=== PATIENT | female | born 1975 | race Caucasian/White ===

== ENCOUNTER 2020-11-10 05:54 | Observation (INO) | payer BC, OTHER ==
[2020-11-10] MEDS ORDERED: Sodium Chloride 0.9% 2.5 ML Syringe FLUSH PRN ×2 (06:32→10:37)
[2020-11-10] MEDS ORDERED: Sodium Chloride 0.9% 10 ML Syringe FLUSH PRN ×2 (06:32→10:37)
[2020-11-10] MEDS ORDERED: Morphine 4 MG/ML Syringe IVPUSH ONE (06:33)
[2020-11-10] MEDS ORDERED: Ondansetron 4 MG/2 ML SDV IVPUSH ONE ×2 (06:33→08:20)
--- NOTE | 2020-11-10 06:39 | EDM.PDOC ---
<Frank Valentin - Last Filed: 11/10/20 06:49> ED HPI GENERAL MEDICAL PROBLEM - General Chief Complaint: Abdominal Pain Stated Complaint: STOMACH PAIN Time Seen by Provider: 11/10/20 06:30 - History of Present Illness INITIAL COMMENTS - FREE TEXT/NARRATIVE: 45-year-old female with a history of polycystic ovarian syndrome has not had menses in quite some time no prior history of similar episodes who is presenting with severe right lower quadrant abdominal pain radiating across to the left lower quadrant waxing and waning over the last 3 days symptoms did start after very large bowel movement and after starting Metformin but no diarrhea pain now radiating up and associated with nausea but no vomiting. No fevers no dysuria or hematuria no vaginal bleeding or discharge. No prior abdominal surgeries. Patient was taking NSAIDs over the last 2 nights with symptom improvement but they have not helped thus far today. 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: Polycystic Ovaries Musculoskeletal History: Reports: None Neurological History: Reports: None Psychiatric History: Reports: None Endocrine/Metabolic History: Reports: Hypothyroidism Dermatologic History: Reports: None - Infectious Disease History Infectious Disease History: Reports: None - Past Surgical History Female Surgical History: Reports: None Social & Family History - Tobacco Use Tobacco Use Status *Q: Never Tobacco User - Caffeine Use Caffeine Use: Reports: Coffee - Recreational Drug Use Recreational Drug Use: No ED ROS GENERAL - Review of Systems Review Of Systems: See Below Free Text/Narrative/Comment: General: No fever. Skin: No rash. Eyes: No vision problems. ENT: No sore throat. Neck: No neck stiffness. Respiratory: No shortness of breath. Cardiac: No chest pain. Gastrointestinal: Per HPI. Urinary: No dysuria. Musculoskeletal: No myalgias/arthralgias. Neurologic: No headache. ED EXAM, GENERAL - Physical Exam Exam: See Below Free Text/Narrative:: General Appearance: No acute distress, appears comfortable Skin: No rash HEENT: Normocephalic/atraumatic, sclera anicteric, mucous membranes moist Neck: Normal range of motion Chest and Lungs: Bilateral breath sounds, clear to auscultation Cardiovascular: Regular rate and rhythm, no murmur Abdomen: Soft, bilateral lower quadrant tenderness much more significant in the right lower quadrant no guarding or rebound Back: Normal Musculoskeletal: No edema or tenderness Neurologic: Awake, alert, no obvious deficits, moving all extremities Psychiatric: Appropriate, cooperative Departure - Departure Disposition: Admitted As Inpatient 65 Clinical Impression: Appendicitis Qualifiers: Appendicitis type: acute appendicitis Acute appendicitis type: with localized peritonitis Appendicitis gangrene presence: unspecified whether gangrene present Appendicitis perforation presence: unspecified whether perforation present Appendicitis abscess presence: with abscess Qualified Code(s): K35.33 - Acute appendicitis with perforation and localized peritonitis, with abscess - Discharge Information Sepsis Event Note (ED) - Evaluation Sepsis Screening Result: No Definite Risk - Assessment/Plan Assessment:: 45-year-old female presenting with 3 days of cough and lower abdominal pain. The waxing and waning nature makes ovarian torsion very unlikely. Ovarian cyst pain is possible. However, patient is significantly tender awfully high in the abdomen for this. Appendicitis needs to be considered nothing suggest colitis and diverticulitis is felt less likely. Very minimal symptoms in the upper abdomen I think biliary pathology is unlikely. No vaginal discharge patient does not have risk factors for PID. Given this TOA felt unlikely as well. Morphine and Zofran for symptoms CBC CMP U. Urinalysis and CT scan of been ordered to further assess. These results are pending at this time and patient was signed out to Dr. Sandoval pending these results and final disposition. <Alex Sandoval - Last Filed: 11/10/20 18:53> ED HPI GENERAL MEDICAL PROBLEM - History of Present Illness INITIAL COMMENTS - FREE TEXT/NARRATIVE: 8:15 AM: Signout received at 7 AM. Patient complaining of right lower quadrant abdominal pain increases with walking to the bathroom to urinate. Patient CT scan is consistent with an enlarged appendix with perforation at the tip with appendix with a surrounding abscess. Case discussed with Dr. Rodrigez who will assist with managing patient's appendicitis. Patient be given Zosyn 3.75 mg IV, LR at 125 mL's per hour, Dilaudid 0.5 mg IV, Zofran 4 mg IV. Patient admitted to service Dr. Rodrigez for IV antibiotics and surgical evaluation. Course - Vital Signs Last Recorded V/S: Last Vital Signs Temp 98.1 F 11/10/20 17:30 Pulse 55 L 11/10/20 17:30 Resp 14 11/10/20 17:30 BP 109/64 11/10/20 17:30 Pulse Ox 98 11/10/20 17:30 - Orders/Labs/Meds Orders: Active Orders 24 hr Category Date Time Status Lactated Ringers [Ringers, Lactated] 1,000 ml Med 11/10/20 08:15 Active IV ASDIRECTED Sodium Chloride 0.9% [Saline Flush] Med 11/10/20 06:32 Active 10 ml FLUSH ASDIRECTED PRN Sodium Chloride 0.9% [Saline Flush] Med 11/10/20 06:32 Active 2.5 ml FLUSH ASDIRECTED PRN Saline Lock Insert [OM.PC] Stat Oth 11/10/20 06:32 Ordered Medication Orders Diphenhydramine HCl (Diphenhydramine 50 Mg/Ml Sdv) 50 mg IVPUSH Q6H PRN PRN Reason: Itching Hydromorphone HCl (Hydromorphone 2 Mg/Ml Syringe) 0.5 mg IVPUSH Q1H PRN PRN Reason: Pain (severe 7-10) Last Admin: 11/10/20 13:26 Dose: 0.5 mg Documented by: MADY Lactated Ringer's (Ringers, Lactated) 1,000 mls @ 125 mls/hr IV ASDIRECTED [facility] Last Admin: 11/10/20 13:42 Dose: 125 mls/hr Documented by: Infusion: 11/10/20 13:42 Dose: 125 mls/hr Documented by: Admin: 11/10/20 08:29 Dose: 125 mls/hr Documented by: PATRICIA Piperacillin Sod/Tazobactam (Sod 3.375 gm/ Sodium Chloride) 100 mls @ 200 mls/h r IV Q6H [facility] Last Admin: 11/10/20 13:42 Dose: 200 mls/hr Documented by: DEE Ketorolac Tromethamine (Ketorolac 30 Mg/Ml Sdv) 30 mg IVPUSH Q6H PRN PRN Reason: Pain (moderate 4-6) Stop: 11/11/20 06:46 Last Admin: 11/10/20 18:43 Dose: 30 mg Documented by: DEE Ondansetron HCl (Ondansetron 4 Mg/2 Ml Sdv) 4 mg IVPUSH Q6H PRN PRN Reason: Nausea/Vomiting Last Admin: 11/10/20 18:42 Dose: 4 mg Documented by: DEE Oxycodone/Acetaminophen (Acetaminophen/Oxycodone 325-5 Mg Tab) 2 tab PO Q4H PRN PRN Reason: Pain (severe 7-10) Last Admin: 11/10/20 15:11 Dose: 2 tab Documented by: DEE Scopolamine (Scopolamine 1.5 Mg Transdermal Patch) 1.5 mg TRDERM Q72H PRN PRN Reason: Nausea Last Admin: 11/10/20 18:43 Dose: 1.5 mg Documented by: DEE Sodium Chloride (Sodium Chloride 0.9% 10 Ml Syringe) 10 ml FLUSH ASDIRECTED PRN PRN Reason: Keep Vein Open Last Admin: 11/10/20 06:40 Dose: 10 ml Documented by: RUDDYDNJASWANT Sodium Chloride (Sodium Chloride 0.9% 2.5 Ml Syringe) 2.5 ml FLUSH ASDIRECTED PRN PRN Reason: Keep Vein Open Last Admin: 11/10/20 06:40 Dose: 2.5 ml Documented by: RUDDYDNIC Sodium Chloride (Sodium Chloride 0.9% 10 Ml Syringe) 10 ml FLUSH ASDIRECTED PRN PRN Reason: Keep Vein Open Sodium Chloride (Sodium Chloride 0.9% 2.5 Ml Syringe) 2.5 ml FLUSH ASDIRECTED PRN PRN Reason: Keep Vein Open Sodium Chloride (Sodium Chloride 0.9% 10 Ml Sdv) 10 ml IV ASDIRECTED PRN PRN Reason: IV Use Labs: Laboratory Tests 11/10/20 11/10/20 11/10/20 Range/Units 06:13 06:13 06:19 WBC 12.53 H (4.0-11.0) K/uL RBC 4.28 L (4.30-5.90) M/uL Hgb 14.1 (12.0-16.0) g/dL Hct 40.0 (36.0-46.0) % MCV 93.5 (80.0-98.0) fL MCH 32.9 H (27.0-32.0) pg MCHC 35.3 (31.0-37.0) g/dL RDW Std Deviation 41.4 (28.0-62.0) fl RDW Coeff of Bessy 12 (11.0-15.0) % Plt Count 217 (150-400) K/uL MPV 12.00 (7.40-12.00) fL Neut % (Auto) 81.8 H (48.0-80.0) % Lymph % (Auto) 9.8 L (16.0-40.0) % [place] % (Auto) 6.9 (0.0-15.0) % Eos % (Auto) 1.2 (0.0-7.0) % Baso % (Auto) 0.3 (0.0-1.5) % Neut # (Auto) 10.3 H (1.4-5.7) K/uL Lymph # (Auto) 1.2 (0.6-2.4) K/uL [place] # (Auto) 0.9 H (0.0-0.8) K/uL Eos # (Auto) 0.2 (0.0-0.7) K/uL Baso # (Auto) 0.0 (0.0-0.1) K/uL Nucleated RBC % 0.0 /100WBC Nucleated RBCs # 0 K/uL Sodium 138 (136-145) mmol/L Potassium 4.1 (3.5-5.1) mmol/L Chloride 104 (98-107) mmol/L Carbon Dioxide 24.8 (21.0-32.0) mmol/L BUN 13 (7.0-18.0) mg/dL Creatinine 0.9 (0.6-1.0) mg/dL Est Cr Clr Drug Dosing 73.12 mL/min Estimated GFR (MDRD) > 60.0 ml/min Glucose 108 H (74-106) mg/dL Calcium 8.3 L (8.5-10.1) mg/dL Total Bilirubin 1.0 (0.2-1.0) mg/dL AST 24 (15-37) IU/L ALT 29 (14-63) IU/L Alkaline Phosphatase 84 (46-116) U/L Total Protein 7.5 (6.4-8.2) g/dL Albumin 3.5 (3.4-5.0) g/dL Globulin 4.0 (2.6-4.0) g/dL Albumin/Globulin Ratio 0.9 (0.9-1.6) Urine Color YELLOW Urine Appearance SLT CLOUDY Urine pH 5.5 (5.0-8.0) Ur Specific [place] >= 1.030 (1.001-1.035) Urine Protein TRACE H (NEGATIVE) mg/dL Urine Glucose (UA) NEGATIVE (NEGATIVE) mg/dL Urine Ketones NEGATIVE (NEGATIVE) mg/dL Urine Occult Blood NEGATIVE (NEGATIVE) Urine Nitrite NEGATIVE (NEGATIVE) Urine Bilirubin NEGATIVE (NEGATIVE) Urine Urobilinogen 0.2 (<2.0) EU/dL Ur Leukocyte Esterase NEGATIVE (NEGATIVE) Urine RBC 0-2 (0-2/HPF) Urine WBC 2-4 (0-5/HPF) Ur Epithelial Cells MODERATE (NONE-FEW) Urine Bacteria 1+ H (NEGATIVE) Urine Mucus MODERATE (NONE-MOD) Urine HCG, Qual (NEGATIVE) SARS-CoV-2 RNA (ROSINA) (NEGATIVE) 11/10/20 11/10/20 Range/Units 06:19 08:50 WBC (4.0-11.0) K/uL RBC (4.30-5.90) M/uL Hgb (12.0-16.0) g/dL Hct (36.0-46.0) % MCV (80.0-98.0) fL MCH (27.0-32.0) pg MCHC (31.0-37.0) g/dL RDW Std Deviation (28.0-62.0) fl RDW Coeff of Bessy (11.0-15.0) % Plt Count (150-400) K/uL MPV (7.40-12.00) fL Neut % (Auto) (48.0-80.0) % Lymph % (Auto) (16.0-40.0) % [place] % (Auto) (0.0-15.0) % Eos % (Auto) (0.0-7.0) % Baso % (Auto) (0.0-1.5) % Neut # (Auto) (1.4-5.7) K/uL Lymph # (Auto) (0.6-2.4) K/uL [place] # (Auto) (0.0-0.8) K/uL Eos # (Auto) (0.0-0.7) K/uL Baso # (Auto) (0.0-0.1) K/uL Nucleated RBC % /100WBC Nucleated RBCs # K/uL Sodium (136-145) mmol/L Potassium (3.5-5.1) mmol/L Chloride (98-107) mmol/L Carbon Dioxide (21.0-32.0) mmol/L BUN (7.0-18.0) mg/dL Creatinine (0.6-1.0) mg/dL Est Cr Clr Drug Dosing mL/min Estimated GFR (MDRD) ml/min Glucose (74-106) mg/dL Calcium (8.5-10.1) mg/dL Total Bilirubin (0.2-1.0) mg/dL AST (15-37) IU/L ALT (14-63) IU/L Alkaline Phosphatase (46-116) U/L Total Protein (6.4-8.2) g/dL Albumin (3.4-5.0) g/dL Globulin (2.6-4.0) g/dL Albumin/Globulin Ratio (0.9-1.6) Urine Color Urine Appearance Urine pH (5.0-8.0) Ur Specific [place] (1.001-1.035) Urine Protein (NEGATIVE) mg/dL Urine Glucose (UA) (NEGATIVE) mg/dL Urine Ketones (NEGATIVE) mg/dL Urine Occult Blood (NEGATIVE) Urine Nitrite (NEGATIVE) Urine Bilirubin (NEGATIVE) Urine Urobilinogen (<2.0) EU/dL Ur Leukocyte Esterase (NEGATIVE) Urine RBC (0-2/HPF) Urine WBC (0-5/HPF) Ur Epithelial Cells (NONE-FEW) Urine Bacteria (NEGATIVE) Urine Mucus (NONE-MOD) Urine HCG, Qual NEGATIVE (NEGATIVE) SARS-CoV-2 RNA (ROSINA) NEGATIVE (NEGATIVE) Meds: Medications Generic Name Dose Route Start Last Admin Trade Name Freq PRN Reason Stop Dose Admin Diphenhydramine HCl 50 mg 11/10/20 12:46 Diphenhydramine 50 Mg/Ml Sdv IVPUSH Q6H PRN Itching Hydromorphone HCl 0.5 mg 11/10/20 12:43 11/10/20 13:26 Hydromorphone 2 Mg/Ml Syringe IVPUSH 0.5 mg Q1H PRN Administration Pain (severe 7-10) Lactated Ringer's 1,000 mls @ 125 mls/hr 11/10/20 08:15 11/10/20 13:42 Ringers, Lactated IV 125 mls/hr ASDIRECTED CLAUDIA Administration Piperacillin Sod/Tazobactam 100 mls @ 200 mls/hr 11/10/20 14:00 11/10/20 13:42 Sod 3.375 gm/ Sodium Chloride IV 200 mls/hr Q6H CLAUDIA Administration Ketorolac Tromethamine 30 mg 11/10/20 12:43 11/10/20 18:43 Ketorolac 30 Mg/Ml Sdv IVPUSH 11/11/20 06:46 30 mg Q6H PRN Administration Pain (moderate 4-6) Ondansetron HCl 4 mg 11/10/20 12:45 11/10/20 18:42 Ondansetron 4 Mg/2 Ml Sdv IVPUSH 4 mg Q6H PRN Administration Nausea/Vomiting Oxycodone/Acetaminophen 2 tab 11/10/20 12:44 11/10/20 15:11 Acetaminophen/Oxycodone 325-5 Mg Tab PO 2 tab Q4H PRN Administration Pain (severe 7-10) Scopolamine 1.5 mg 11/10/20 12:45 11/10/20 18:43 Scopolamine 1.5 Mg Transdermal Patch TRDERM 1.5 mg Q72H PRN Administration Nausea Sodium Chloride 10 ml 11/10/20 06:32 11/10/20 06:40 Sodium Chloride 0.9% 10 Ml Syringe FLUSH 10 ml ASDIRECTED PRN Administration Keep Vein Open Sodium Chloride 2.5 ml 11/10/20 06:32 11/10/20 06:40 Sodium Chloride 0.9% 2.5 Ml Syringe FLUSH 2.5 ml ASDIRECTED PRN Administration Keep Vein Open Sodium Chloride 10 ml 11/10/20 10:37 Sodium Chloride 0.9% 10 Ml Syringe FLUSH ASDIRECTED PRN Keep Vein Open Sodium Chloride 2.5 ml 11/10/20 10:37 Sodium Chloride 0.9% 2.5 Ml Syringe FLUSH ASDIRECTED PRN Keep Vein Open Sodium Chloride 10 ml 11/10/20 10:37 Sodium Chloride 0.9% 10 Ml Sdv IV ASDIRECTED PRN IV Use Discontinued Medications Generic Name Dose Route Start Last Admin Trade Name Urielq PRN Reason Stop Dose Admin Bupivacaine HCl Confirm 11/10/20 10:34 Bupivacaine 0.5% 30 Ml Sdv Administered 11/10/20 10:35 Dose 30 ml .ROUTE .STK-MED ONE Dexamethasone Confirm 11/10/20 10:33 Dexamethasone 4 Mg/Ml 5 Ml Mdv Administered 11/10/20 10:34 Dose 20 mg .ROUTE .STK-MED ONE Fentanyl Confirm 11/10/20 10:33 Fentanyl 250 Mcg/5 Ml Sdv Administered 11/10/20 10:34 Dose 250 mcg .ROUTE .STK-MED ONE Fentanyl Confirm 11/10/20 12:03 Fentanyl 100 Mcg/2 Ml Sdv Administered 11/10/20 12:04 Dose 100 mcg .ROUTE .STK-MED ONE Hydromorphone HCl 0.5 mg 11/10/20 08:17 11/10/20 08:30 Hydromorphone 2 Mg/Ml Syringe IVPUSH 11/10/20 08:18 0.5 mg ONETIME ONE Administration Piperacillin Sod/Tazobactam 50 mls @ 100 mls/hr 11/10/20 08:13 11/10/20 08:30 Sod 3.375 gm/ Sodium Chloride IV 11/10/20 08:42 100 mls/hr ONETIME ONE Administration Acetaminophen 1,000 mg/ Premix 100 mls @ 400 mls/hr 11/10/20 11:58 11/10/20 12:43 IV 400 mls/hr ONETIME PRN Administration Pain Iopamidol 100 ml 11/10/20 07:01 11/10/20 07:24 Iopamidol 755 Mg/Ml 500 Ml Multipack Bottle IVPUSH 11/10/20 07:02 100 ml ONETIME STA Administration Ketorolac Tromethamine Confirm 11/10/20 10:44 Ketorolac 30 Mg/Ml Sdv Administered 11/10/20 10:45 Dose 30 mg .ROUTE .STK-MED ONE Lidocaine HCl Confirm 11/10/20 10:33 Lidocaine 1% 5 Ml Sdv Administered 11/10/20 10:34 Dose 5 ml .ROUTE .STK-MED ONE Midazolam HCl Confirm 11/10/20 10:33 Midazolam 1 Mg/Ml 2 Ml Sdv Administered 11/10/20 10:34 Dose 2 mg .ROUTE .STK-MED ONE Morphine Sulfate 4 mg 11/10/20 06:33 11/10/20 06:41 Morphine 4 Mg/Ml Syringe IVPUSH 11/10/20 06:34 4 mg ONETIME ONE Administration Octyl Cyanoacrylate Confirm 11/10/20 10:35 Octyl 2-Cyanoacrylate 1 Tube Administered 11/10/20 10:36 Dose 1 applic .ROUTE .STK-MED ONE Ondansetron HCl 4 mg 11/10/20 06:33 11/10/20 06:41 Ondansetron 4 Mg/2 Ml Sdv IVPUSH 11/10/20 06:34 4 mg ONETIME ONE Administration Ondansetron HCl 4 mg 11/10/20 08:20 11/10/20 08:29 Ondansetron 4 Mg/2 Ml Sdv IVPUSH 11/10/20 08:21 4 mg ONETIME ONE Administration Ondansetron HCl Confirm 11/10/20 08:21 11/10/20 08:30 Ondansetron 4 Mg/2 Ml Sdv Administered 11/10/20 08:22 Not Given Dose 4 mg .ROUTE .STK-MED ONE Ondansetron HCl Confirm 11/10/20 10:33 Ondansetron 4 Mg/2 Ml Sdv Administered 11/10/20 10:34 Dose 4 mg .ROUTE .STK-MED ONE Ondansetron HCl 4 mg 11/10/20 11:58 Ondansetron 4 Mg/2 Ml Sdv IVPUSH Q4H PRN Nausea Propofol Confirm 11/10/20 10:33 Propofol 200 Mg/20 Ml Sdv Administered 11/10/20 10:34 Dose 200 mg .ROUTE .STK-MED ONE Rocuronium Dugger Confirm 11/10/20 10:33 Rocuronium Dugger 50 Mg/5 Ml Syringe Administered 11/10/20 10:34 Dose 50 mg .ROUTE .STK-MED ONE Sugammadex Sodium Confirm 11/10/20 10:43 Sugammadex Sodium 200 Mg/2 Ml Vial Administered 11/10/20 10:44 Dose 200 mg .ROUTE .STK-MED ONE Departure - Departure Time of Disposition: 09:00 Condition: Good Sepsis Event Note (ED) - Focused Exam Vital Signs: Vital Signs Pulse Resp BP Pulse Ox 11/10/20 09:15 63 16 126/75 99 11/10/20 08:26 74 16 124/69 100 - My Orders Last 24 Hours: My Active Orders 11/10/20 08:15 Lactated Ringers [Ringers, Lactated] 1,000 ml IV ASDIRECTED - Assessment/Plan Last 24 Hours: My Active Orders 11/10/20 08:15 Lactated Ringers [Ringers, Lactated] 1,000 ml IV ASDIRECTED
[2020-11-10 06:48] LABS: BLOOD UREA NITROGEN,BUN 13 mg/dL (7.0-18.0); CARBON DIOXIDE,CO2 24.8 mmol/L (21.0-32.0); CHLORIDE,CL 104 mmol/L (98-107); GLUCOSE RANDOM 108 mg/dL (74-106); POTASSIUM,K 4.1 mmol/L (3.5-5.1); SODIUM,NA 138 mmol/L (136-145)
[2020-11-10] MEDS ORDERED: Iopamidol 755 MG/ML 500 ML Multipack Bottle IVPUSH STA (07:01)
--- NOTE | 2020-11-10 08:00 | CT ---
Indication: Abdominal pain right and left lower quadrant Technique: Volumetric multidetector CT images of the abdomen and pelvis were obtained after the administration of intravenous contrast. 100 cc Isovue 370 low osmolar intravenous contrast Comparison: None available. Findings: There is bibasilar atelectasis versus parenchymal scarring. The liver is preserved in attenuation with mild intrahepatic biliary ductal dilatation. The portal vein is patent. Gallbladder is surgically absent. There is mild reservoir dilatation of the common bile duct. The spleen is normal in enhancement and size. The stomach and duodenum are grossly unremarkable. The pancreas is normal in enhancement without significant atrophy. The adrenal glands are unremarkable. The kidneys demonstrate preserved corticomedullary differentiation without evidence of obstructive uropathy. There is moderate stool seen throughout the colon with sigmoid diverticulosis without evidence of diverticulitis. There is a markedly dilated appendix within the right lower quadrant measuring up to 1.3 centimeters with focal rupture just at the tip with developing rim enhancing abscess measuring up to 4.3 centimeters. There is no significant mesenteric, retroperitoneal, or pelvic sidewall lymph nodes. The aorta is nonaneurysmal. There is no significant atherosclerotic disease appreciated. There is an IUD seen within the endometrial canal. The solid pelvic viscera are grossly unremarkable. There is no free fluid or free air. The anterior abdominal wall is intact without significant hernias. The lumbar vertebral body heights are grossly maintained with minimal endplate Schmorl`s defects. There is no acute osseous abnormality. Impression: Markedly dilated appendix measuring up to 1.3 centimeters with likely contained rupture just at the tip with developing rim enhancing abscess measuring 4.3 centimeters. Prior cholecystectomy with minimal risk for dilatation of the intrahepatic and common bile duct. Mild colonic diverticulosis without evidence of diverticulitis. Please note that all CT scans at this facility use dose modulation, iterative reconstruction, and/or weight-based dosing when appropriate to reduce radiation dose to as low as reasonably achievable. Dictated by Flaquito Rincon MD @ 11/10/2020 7:59:[address] Flaquito Rincon @ Nov 10 2020 7:59AM
[2020-11-10] MEDS ORDERED: Piperacillin/Tazobactam 3.375 GM in Sodium Chloride 0.9% 50 ML IV ONE (08:13)
[2020-11-10] MEDS ORDERED: HYDROmorphone 2 MG/ML Syringe IVPUSH ONE (08:17)
[2020-11-10] MEDS ORDERED: Ondansetron 4 MG/2 ML SDV ONE ×2 (08:21→10:33)
[2020-11-10] MEDS: Lactated Ringers 1,000 ML IV SCH ×3 (08:29→22:03)
--- NOTE | 2020-11-10 10:15 | PCM.HP.2 ---
H&P History of Present Illness - General Date of Service: 11/10/20 Admit Problem/Dx: Admission Diagnosis/Problem Admission Diagnosis/Problem Acute appendicitis with appendiceal abscess Source of Information: Patient History Limitations: Reports: No Limitations - History of Present Illness Initial Comments - Free Text/Narative: Patient is a 45 rolled female who presents to emergency room with 3 days of lower abdominal pain. Her past medical history is significant for polycystic ovarian syndrome and hypothyroidism. She states that the pain started 3 days ago. It was intermittent crampy and located in the suprapubic area. She thought that this may be a cyst on her ovary. She took ibuprofen with good relief in her pain. The pain would still come back and yesterday it became constant. It was worse with movement. She had a small amount of nausea with it. The pain persist ed and became worse so she presented to the emergency room today. She denied any fevers chills or vomiting at home. She has worsening pain with micturation as well. Her vital signs on admission were normal. Her WBC was elevated at 12.5 with a left shift. A CT scan was performed which showed ruptured tip appendicitis with a developing abscess measuring ~ 4cm in size. I visited with the radiologist who read the CT scan. I asked the abscess would be amenable to drainage. He states that he would be difficult to place a drain percutaneously into the area given that the abscess is surrounded by small bowel and located in the right pelvis. 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 Musculoskeletal History: Reports: None Neurological History: Reports: None Psychiatric History: Reports: None Endocrine/Metabolic History: Reports: Hypothyroidism Dermatologic History: Reports: None - Infectious Disease History Infectious Disease History: Reports: None - Past Surgical History Female Surgical History: Reports: None Social & Family History - Tobacco Use Tobacco Use Status *Q: Never Tobacco User - Caffeine Use Caffeine Use: Reports: Coffee - Recreational Drug Use Recreational Drug Use: No H&P Review of Systems - Review of Systems: Review Of Systems: Comprehensive ROS is negative, except as noted in HPI. Exam - Exam Exam: See Below - Vital Signs Vital Signs: Last Vital Signs Temp 36.1 C 11/10/20 06:13 Pulse 63 11/10/20 09:15 Resp 16 11/10/20 09:15 BP 126/75 11/10/20 09:15 Pulse Ox 99 11/10/20 09:15 Weight: 87.543 kg - Exam Quality Assessment: Supplemental Oxygen General: Alert, Oriented, Moderate Distress HEENT: Conjunctiva Clear, Mucosa Moist & [place], Posterior Pharynx Clear Neck: Supple, Trachea Midline Lungs: Clear to Auscultation, Normal Respiratory Effort Cardiovascular: Regular Rate, Regular Rhythm GI/Abdominal Exam: Soft, Guarding (RLQ), Rigid (RLQ), Rebound (RLQ), Tender (RLQ) - Patient Data Lab Results Last 24 hrs: Laboratory Results - last 24 hr 11/10/20 11/10/20 11/10/20 Range/Units 06:13 06:13 06:19 WBC 12.53 H (4.0-11.0) K/uL RBC 4.28 L (4.30-5.90) M/uL Hgb 14.1 (12.0-16.0) g/dL Hct 40.0 (36.0-46.0) % MCV 93.5 (80.0-98.0) fL MCH 32.9 H (27.0-32.0) pg MCHC 35.3 (31.0-37.0) g/dL RDW Std Deviation 41.4 (28.0-62.0) fl RDW Coeff of Bessy 12 (11.0-15.0) % Plt Count 217 (150-400) K/uL MPV 12.00 (7.40-12.00) fL Neut % (Auto) 81.8 H (48.0-80.0) % Lymph % (Auto) 9.8 L (16.0-40.0) % [place] % (Auto) 6.9 (0.0-15.0) % Eos % (Auto) 1.2 (0.0-7.0) % Baso % (Auto) 0.3 (0.0-1.5) % Neut # (Auto) 10.3 H (1.4-5.7) K/uL Lymph # (Auto) 1.2 (0.6-2.4) K/uL [place] # (Auto) 0.9 H (0.0-0.8) K/uL Eos # (Auto) 0.2 (0.0-0.7) K/uL Baso # (Auto) 0.0 (0.0-0.1) K/uL Nucleated RBC % 0.0 /100WBC Nucleated RBCs # 0 K/uL Sodium 138 (136-145) mmol/L Potassium 4.1 (3.5-5.1) mmol/L Chloride 104 (98-107) mmol/L Carbon Dioxide 24.8 (21.0-32.0) mmol/L BUN 13 (7.0-18.0) mg/dL Creatinine 0.9 (0.6-1.0) mg/dL Est Cr Clr Drug Dosing 73.12 mL/min Estimated GFR (MDRD) > 60.0 ml/min Glucose 108 H (74-106) mg/dL Calcium 8.3 L (8.5-10.1) mg/dL Total Bilirubin 1.0 (0.2-1.0) mg/dL AST 24 (15-37) IU/L ALT 29 (14-63) IU/L Alkaline Phosphatase 84 (46-116) U/L Total Protein 7.5 (6.4-8.2) g/dL Albumin 3.5 (3.4-5.0) g/dL Globulin 4.0 (2.6-4.0) g/dL Albumin/Globulin Ratio 0.9 (0.9-1.6) Urine Color YELLOW Urine Appearance SLT CLOUDY Urine pH 5.5 (5.0-8.0) Ur Specific [place] >= 1.030 (1.001-1.035) Urine Protein TRACE H (NEGATIVE) mg/dL Urine Glucose (UA) NEGATIVE (NEGATIVE) mg/dL Urine Ketones NEGATIVE (NEGATIVE) mg/dL Urine Occult Blood NEGATIVE (NEGATIVE) Urine Nitrite NEGATIVE (NEGATIVE) Urine Bilirubin NEGATIVE (NEGATIVE) Urine Urobilinogen 0.2 (<2.0) EU/dL Ur Leukocyte Esterase NEGATIVE (NEGATIVE) Urine RBC 0-2 (0-2/HPF) Urine WBC 2-4 (0-5/HPF) Ur Epithelial Cells MODERATE (NONE-FEW) Urine Bacteria 1+ H (NEGATIVE) Urine Mucus MODERATE (NONE-MOD) Urine HCG, Qual (NEGATIVE) SARS-CoV-2 RNA (ROSINA) (NEGATIVE) 11/10/20 11/10/20 Range/Units 06:19 08:50 WBC (4.0-11.0) K/uL RBC (4.30-5.90) M/uL Hgb (12.0-16.0) g/dL Hct (36.0-46.0) % MCV (80.0-98.0) fL MCH (27.0-32.0) pg MCHC (31.0-37.0) g/dL RDW Std Deviation (28.0-62.0) fl RDW Coeff of Bessy (11.0-15.0) % Plt Count (150-400) K/uL MPV (7.40-12.00) fL Neut % (Auto) (48.0-80.0) % Lymph % (Auto) (16.0-40.0) % [place] % (Auto) (0.0-15.0) % Eos % (Auto) (0.0-7.0) % Baso % (Auto) (0.0-1.5) % Neut # (Auto) (1.4-5.7) K/uL Lymph # (Auto) (0.6-2.4) K/uL [place] # (Auto) (0.0-0.8) K/uL Eos # (Auto) (0.0-0.7) K/uL Baso # (Auto) (0.0-0.1) K/uL Nucleated RBC % /100WBC Nucleated RBCs # K/uL Sodium (136-145) mmol/L Potassium (3.5-5.1) mmol/L Chloride (98-107) mmol/L Carbon Dioxide (21.0-32.0) mmol/L BUN (7.0-18.0) mg/dL Creatinine (0.6-1.0) mg/dL Est Cr Clr Drug Dosing mL/min Estimated GFR (MDRD) ml/min Glucose (74-106) mg/dL Calcium (8.5-10.1) mg/dL Total Bilirubin (0.2-1.0) mg/dL AST (15-37) IU/L ALT (14-63) IU/L Alkaline Phosphatase (46-116) U/L Total Protein (6.4-8.2) g/dL Albumin (3.4-5.0) g/dL Globulin (2.6-4.0) g/dL Albumin/Globulin Ratio (0.9-1.6) Urine Color Urine Appearance Urine pH (5.0-8.0) Ur Specific [place] (1.001-1.035) Urine Protein (NEGATIVE) mg/dL Urine Glucose (UA) (NEGATIVE) mg/dL Urine Ketones (NEGATIVE) mg/dL Urine Occult Blood (NEGATIVE) Urine Nitrite (NEGATIVE) Urine Bilirubin (NEGATIVE) Urine Urobilinogen (<2.0) EU/dL Ur Leukocyte Esterase (NEGATIVE) Urine RBC (0-2/HPF) Urine WBC (0-5/HPF) Ur Epithelial Cells (NONE-FEW) Urine Bacteria (NEGATIVE) Urine Mucus (NONE-MOD) Urine HCG, Qual NEGATIVE (NEGATIVE) SARS-CoV-2 RNA (ROSINA) NEGATIVE (NEGATIVE) Result Diagrams: 11/10/20 06:13 11/10/20 06:13 Sepsis Event Note - Evaluation Sepsis Screening Result: No Definite Risk - Focused Exam Vital Signs: Vital Signs Temp Pulse Resp BP Pulse Ox 11/10/20 09:15 63 16 126/75 99 11/10/20 08:26 74 16 124/69 100 11/10/20 06:47 88 16 124/75 98 11/10/20 06:13 36.1 C 84 16 117/75 100 - Problem List (1) Acute appendicitis with rupture SNOMED Code(s): 62422619, 93267513 ICD Code: K35.32 - ACUTE APPENDICITIS WITH PERF AND LOC PERITONITIS, W/O ABSCS Status: Acute Current Visit: Yes Problem List Initiated/Reviewed/Updated: Yes Orders Last 24hrs: Active Orders 24 hr Category Date Time Status Patient Status [ADT] Routine ADT 11/10/20 09:14 Active Lactated Ringers [Ringers, Lactated] 1,000 ml Med 11/10/20 08:15 Active IV ASDIRECTED Sodium Chloride 0.9% [Saline Flush] Med 11/10/20 06:32 Active 10 ml FLUSH ASDIRECTED PRN Sodium Chloride 0.9% [Saline Flush] Med 11/10/20 06:32 Active 2.5 ml FLUSH ASDIRECTED PRN Saline Lock Insert [OM.PC] Stat Oth 11/10/20 06:32 Ordered Medication Orders Lactated Ringer's (Ringers, Lactated) 1,000 mls @ 125 mls/hr IV ASDIRECTED CLAUDIA Last Admin: 11/10/20 08:29 Dose: 125 mls/hr Documented by: PATRICIA Sodium Chloride (Sodium Chloride 0.9% 10 Ml Syringe) 10 ml FLUSH ASDIRECTED PRN PRN Reason: Keep Vein Open Last Admin: 11/10/20 06:40 Dose: 10 ml Documented by: KEMI Sodium Chloride (Sodium Chloride 0.9% 2.5 Ml Syringe) 2.5 ml FLUSH ASDIRECTED PRN PRN Reason: Keep Vein Open Last Admin: 11/10/20 06:40 Dose: 2.5 ml Documented by: KEMI Assessment/Plan Comment:: The patient and I discussed the pathophysiology of acute appendicitis. I explained that her appendix appears ruptured and there is a large abscess associated with this. Given the difficult location of the abscess, it'll be technically difficult to place a percutaneous drain in the area without risking damaging bowel. Since this is an acute process I feel the safest option would be to proceed with surgery. I will attempt this laparoscopically but there is a good chance that I might have to go open. Regardless of this, she will need to stay in the hospital for several days for IV antibiotics and close monitoring afterwards so she will be inpatient. We discussed both the laparoscopic and open procedures. I explained the risks including bleeding and subsequent infections and damage to surrounding structures. She verbalized understanding and wishes to proceed. She was given IV Zosyn in the ER. She was given 1 L IV fluids. She was then started on maintenance LR at 125ml/hr. She's been nothing by mouth since last evening. Will take her to the operating room as soon as possible.
[2020-11-10] MEDS ORDERED: Midazolam 1 MG/ML 2 ML SDV ONE (10:33)
[2020-11-10] MEDS ORDERED: fentaNYL 250 MCG/5 ML SDV ONE (10:33)
[2020-11-10] MEDS ORDERED: Dexamethasone 4 MG/ML 5 ML MDV ONE (10:33)
[2020-11-10] MEDS ORDERED: Propofol 200 MG/20 ML SDV ONE (10:33)
[2020-11-10] MEDS ORDERED: Rocuronium Bromide 50 MG/5 ML Syringe ONE (10:33)
--- NOTE | 2020-11-10 10:33 | PCM.PREANE ---
Preanesthetic Assessment - Anesthesia/Transfusion/Family Hx Anesthesia History: Prior Anesthesia Reaction Type of Anesthesia Reaction: Excessive Somnolence Family History of Anesthesia Reaction: No - Review of Systems General: No Symptoms Pulmonary: No Symptoms Cardiovascular: No Symptoms Gastrointestinal: No Symptoms Neurological: No Symptoms Other: Reports: None - Physical Assessment NPO Status Date: 11/10/20 NPO Status Time: 00:01 Vital Signs: Last Vital Signs Temp 97 F 11/10/20 06:13 Pulse 63 11/10/20 09:15 Resp 16 11/10/20 09:15 BP 126/75 11/10/20 09:15 Pulse Ox 99 11/10/20 09:15 Height: 5 ft 6 in Weight: 193 lb ASA Class: 2E Mental Status: Alert & Oriented x3 Airway Class: Mallampati = 2 Dentition: Reports: Normal Dentition ROM/Head Extension: Full Lungs: Clear to Auscultation, Normal Respiratory Effort Cardiovascular: Regular Rate, Regular Rhythm - Lab Values: Laboratory Last Values WBC 12.53 K/uL (4.0-11.0) H 11/10/20 06:13 RBC 4.28 M/uL (4.30-5.90) L 11/10/20 06:13 Hgb 14.1 g/dL (12.0-16.0) 11/10/20 06:13 Hct 40.0 % (36.0-46.0) 11/10/20 06:13 MCV 93.5 fL (80.0-98.0) 11/10/20 06:13 MCH 32.9 pg (27.0-32.0) H 11/10/20 06:13 MCHC 35.3 g/dL (31.0-37.0) 11/10/20 06:13 RDW Std Deviation 41.4 fl (28.0-62.0) 11/10/20 06:13 RDW Coeff of Bessy 12 % (11.0-15.0) 11/10/20 06:13 Plt Count 217 K/uL (150-400) 11/10/20 06:13 MPV 12.00 fL (7.40-12.00) 11/10/20 06:13 Neut % (Auto) 81.8 % (48.0-80.0) H 11/10/20 06:13 Lymph % (Auto) 9.8 % (16.0-40.0) L 11/10/20 06:13 [place] % (Auto) 6.9 % (0.0-15.0) 11/10/20 06:13 Eos % (Auto) 1.2 % (0.0-7.0) 11/10/20 06:13 Baso % (Auto) 0.3 % (0.0-1.5) 11/10/20 06:13 Neut # (Auto) 10.3 K/uL (1.4-5.7) H 11/10/20 06:13 Lymph # (Auto) 1.2 K/uL (0.6-2.4) 11/10/20 06:13 [place] # (Auto) 0.9 K/uL (0.0-0.8) H 11/10/20 06:13 Eos # (Auto) 0.2 K/uL (0.0-0.7) 11/10/20 06:13 Baso # (Auto) 0.0 K/uL (0.0-0.1) 11/10/20 06:13 Nucleated RBC % 0.0 /100WBC 11/10/20 06:13 Nucleated RBCs # 0 K/uL 11/10/20 06:13 Sodium 138 mmol/L (136-145) 11/10/20 06:13 Potassium 4.1 mmol/L (3.5-5.1) 11/10/20 06:13 Chloride 104 mmol/L (98-107) 11/10/20 06:13 Carbon Dioxide 24.8 mmol/L (21.0-32.0) 11/10/20 06:13 BUN 13 mg/dL (7.0-18.0) 11/10/20 06:13 Creatinine 0.9 mg/dL (0.6-1.0) 11/10/20 06:13 Est Cr Clr Drug Dosing 73.12 mL/min 11/10/20 06:13 Estimated GFR (MDRD) > 60.0 ml/min 11/10/20 06:13 Glucose 108 mg/dL (74-106) H 11/10/20 06:13 Calcium 8.3 mg/dL (8.5-10.1) L 11/10/20 06:13 Total Bilirubin 1.0 mg/dL (0.2-1.0) 11/10/20 06:13 AST 24 IU/L (15-37) 11/10/20 06:13 ALT 29 IU/L (14-63) 11/10/20 06:13 Alkaline Phosphatase 84 U/L (46-116) 11/10/20 06:13 Total Protein 7.5 g/dL (6.4-8.2) 11/10/20 06:13 Albumin 3.5 g/dL (3.4-5.0) 11/10/20 06:13 Globulin 4.0 g/dL (2.6-4.0) 11/10/20 06:13 Albumin/Globulin Ratio 0.9 (0.9-1.6) 11/10/20 06:13 Urine Color YELLOW 11/10/20 06:19 Urine Appearance SLT CLOUDY 11/10/20 06:19 Urine pH 5.5 (5.0-8.0) 11/10/20 06:19 Ur Specific [place] >= 1.030 (1.001-1.035) 11/10/20 06:19 Urine Protein TRACE mg/dL (NEGATIVE) H 11/10/20 06:19 Urine Glucose (UA) NEGATIVE mg/dL (NEGATIVE) 11/10/20 06:19 Urine Ketones NEGATIVE mg/dL (NEGATIVE) 11/10/20 06:19 Urine Occult Blood NEGATIVE (NEGATIVE) 11/10/20 06:19 Urine Nitrite NEGATIVE (NEGATIVE) 11/10/20 06:19 Urine Bilirubin NEGATIVE (NEGATIVE) 11/10/20 06:19 Urine Urobilinogen 0.2 EU/dL (<2.0) 11/10/20 06:19 Ur Leukocyte Esterase NEGATIVE (NEGATIVE) 11/10/20 06:19 Urine RBC 0-2 (0-2/HPF) 11/10/20 06:19 Urine WBC 2-4 (0-5/HPF) 11/10/20 06:19 Ur Epithelial Cells MODERATE (NONE-FEW) 11/10/20 06:19 Urine Bacteria 1+ (NEGATIVE) H 11/10/20 06:19 Urine Mucus MODERATE (NONE-MOD) 11/10/20 06:19 Urine HCG, Qual NEGATIVE (NEGATIVE) 11/10/20 06:19 SARS-CoV-2 RNA (ROSINA) NEGATIVE (NEGATIVE) 11/10/20 08:50 - Allergies Allergies/Adverse Reactions: Allergies Allergy/AdvReac Type Severity Reaction Status Date / Time Sulfa (Sulfonamide Allergy Rash Verified 11/10/20 06:11 Antibiotics) - Anesthesia Plan Pre-Op Medication Ordered: None - Acknowledgements Anesthesia Type Planned: General Anesthesia Pt an Appropriate Candidate for the Planned Anesthesia: Yes Alternatives and Risks of Anesthesia Discussed w Pt/Guardian: Yes Pt/Guardian Understands and Agrees with Anesthesia Plan: Yes Additional Comments: npo after mn dry heaving this am no cv or pulmonary problems PCOS was very sleepy after her T&A age 33 par no questions PreAnesthesia Questionnaire HEENT History: Reports: None Cardiovascular History: Reports: None Respiratory History: Reports: None Gastrointestinal History: Reports: None Genitourinary History: Reports: None [employer]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 Musculoskeletal History: Reports: None Neurological History: Reports: None Psychiatric History: Reports: None Endocrine/Metabolic History: Reports: Hypothyroidism Dermatologic History: Reports: None - Infectious Disease History Infectious Disease History: Reports: None - Past Surgical History Female Surgical History: Reports: None - SUBSTANCE USE Tobacco Use Status *Q: Never Tobacco User Recreational Drug Use History: No - HOME MEDS Home Medications: Home Meds Levothyroxine 112 mcg PO DAILY 11/10/20 [History] metFORMIN [Glucophage] 500 mg PO DAILY 11/10/20 [History] - CURRENT (IN HOUSE) MEDS Current Meds: Current Medications Lactated Ringer's (Ringers, Lactated) 1,000 mls @ 125 mls/hr IV ASDIRECTED CLAUDIA Last Admin: 11/10/20 08:29 Dose: 125 mls/hr Documented by: Sodium Chloride (Sodium Chloride 0.9% 10 Ml Syringe) 10 ml FLUSH ASDIRECTED PRN PRN Reason: Keep Vein Open Last Admin: 11/10/20 06:40 Dose: 10 ml Documented by: Sodium Chloride (Sodium Chloride 0.9% 2.5 Ml Syringe) 2.5 ml FLUSH ASDIRECTED PRN PRN Reason: Keep Vein Open Last Admin: 11/10/20 06:40 Dose: 2.5 ml Documented by: Discontinued Medications Hydromorphone HCl (Hydromorphone 2 Mg/Ml Syringe) 0.5 mg IVPUSH ONETIME ONE Stop: 11/10/20 08:18 Last Admin: 11/10/20 08:30 Dose: 0.5 mg Documented by: Piperacillin Sod/Tazobactam (Sod 3.375 gm/ Sodium Chloride) 50 mls @ 100 mls/hr IV ONETIME ONE Stop: 11/10/20 08:42 Last Admin: 11/10/20 08:30 Dose: 100 mls/hr Documented by: Iopamidol (Iopamidol 755 Mg/Ml 500 Ml Multipack Bottle) 100 ml IVPUSH ONETIME STA Stop: 11/10/20 07:02 Last Admin: 11/10/20 07:24 Dose: 100 ml Documented by: Morphine Sulfate (Morphine 4 Mg/Ml Syringe) 4 mg IVPUSH ONETIME ONE Stop: 11/10/20 06:34 Last Admin: 11/10/20 06:41 Dose: 4 mg Documented by: Ondansetron HCl (Ondansetron 4 Mg/2 Ml Sdv) 4 mg IVPUSH ONETIME ONE Stop: 11/10/20 06:34 Last Admin: 11/10/20 06:41 Dose: 4 mg Documented by: Ondansetron HCl (Ondansetron 4 Mg/2 Ml Sdv) 4 mg IVPUSH ONETIME ONE Stop: 11/10/20 08:21 Last Admin: 11/10/20 08:29 Dose: 4 mg Documented by: Ondansetron HCl (Ondansetron 4 Mg/2 Ml Sdv) Confirm Administered Dose 4 mg .ROUTE .STK-MED ONE Stop: 11/10/20 08:22 Last Admin: 11/10/20 08:30 Dose: Not Given Documented by:
[2020-11-10] MEDS ORDERED: Bupivacaine 0.5% 30 ML SDV ONE (10:34)
[2020-11-10] MEDS ORDERED: Octyl 2-Cyanoacrylate 1 Tube ONE (10:35)
[2020-11-10] MEDS ORDERED: Sodium Chloride 0.9% 10 ML SDV IV PRN (10:37)
[2020-11-10] MEDS ORDERED: Sugammadex Sodium 200 MG/2 ML VIAL ONE (10:43)
[2020-11-10] MEDS ORDERED: Ketorolac 30 MG/ML SDV ONE (10:44)
[2020-11-10] MEDS ORDERED: Ondansetron 4 MG/2 ML SDV IVPUSH PRN (11:58)
[2020-11-10] MEDS ORDERED: Acetaminophen 1,000 MG in Premix Bag 1 BAG IV PRN (11:58)
[2020-11-10] MEDS ORDERED: fentaNYL 100 MCG/2 ML SDV ONE (12:03)
--- NOTE | 2020-11-10 12:42 | PCM.OPNOTE ---
- General Post-Op/Procedure Note Date of Surgery/Procedure: 11/10/20 Operative Procedure(s): Laparoscopic appendectomy Findings: The tip of the appendix was very large and likely the phlegmon/abscess that was noted on her pre-operative CT scan. The grossly necrotic appendix was encased in the distal ileum. This was able to be peeled away without damage to the small intestine. There was a small perforation on the tip of the appendix. purulent material was controlled with suction. Contained rupture of the appendix. Pre Op Diagnosis: Acute appendicitis with rupture Post-Op Diagnosis: same Anesthesia Technique: General ET Tube Primary Surgeon: Sonia Chaparro Fluid Replacement, Intraop: 1,500 Output, Urine Amount: 150 EBL in mLs: 5 Condition: Good
[2020-11-10] MEDS ORDERED: Ketorolac 30 MG/ML SDV IVPUSH PRN (12:43)
[2020-11-10] MEDS ORDERED: diphenhydrAMINE 50 MG/ML SDV IVPUSH PRN (12:46)
--- NOTE | 2020-11-10 12:54 | PCM.SN.2 ---
- Free Text/Narrative Note: The patient presented to the ER with abdominal pain. Her physical exam showed peritoneal signs in the lower abdomen. Her CT scan showed perforated appendicitis with a developing abscess in the RLQ. Given these findings I was concerned that we may have to convert to open to get the appendix out safely. Regardless, if she had purulent peritonitis she would need to be admitted as an inpatient for IV antibiotics. When I performed the procedure she had a contained perforation of the appendix. The developing abscess was a very dilated appendicial tip containing that purulent material. Her rupture was contained with surrounding tissue. There was minimal spillage of pus during the case and this was controlled. Given this she will need at least 24 hours of IV antibiotics but may need to only stay as observation. I talked to our hospital social work supervisor Moses Marina and the superintendent house. I d/c the inpatient order and switched it to an observation order. If there are complications that arise these will be addressed and her admission order will be adjusted as needed.
--- NOTE | 2020-11-10 13:06 | PCM.POSTAN ---
POST ANESTHESIA ASSESSMENT - MENTAL STATUS Mental Status: Alert - VITAL SIGNS Vital Signs: Last Vital Signs Temp 36.3 C 11/10/20 12:32 Pulse 60 11/10/20 12:47 Resp 13 11/10/20 12:47 BP 113/59 L 11/10/20 12:47 Pulse Ox 100 11/10/20 12:47 - RESPIRATORY Respiratory Status: Respiratory Rate WNL - CARDIOVASCULAR CV Status: Pulse Rate WNL - GASTROINTESTINAL GI Status: No Symptoms - POST OP HYDRATION Hydration Status: Adequate & Stable
[2020-11-10] MEDS: HYDROmorphone 2 MG/ML Syringe IVPUSH PRN ×2 (13:26→19:31)
[2020-11-10] MEDS: Piperacillin/Tazobactam 3.375 GM in Sodium Chloride 0.9% 100 ML IV SCH ×2 (13:42→19:42)
[2020-11-10] MEDS: Acetaminophen/oxyCODONE 325-5 MG Tab PO PRN (15:11)
[2020-11-10] MEDS: Ondansetron 4 MG/2 ML SDV IVPUSH PRN (18:42)
[2020-11-10] MEDS: Scopolamine 1.5 MG Transdermal Patch TRDERM PRN (18:43)
--- NOTE | 2020-11-10 19:52 | OR ---
SURGEON: SONIA WAHL MD DATE OF PROCEDURE: 11/10/2020 PREOPERATIVE DIAGNOSIS: Acute appendicitis with rupture. POSTOPERATIVE DIAGNOSIS: Acute appendicitis with rupture. PROCEDURE PERFORMED: Laparoscopic appendectomy. PRIMARY SURGEON: Sonia Wahl MD SECONDARY SURGEON: Anmol Mora MD ANESTHESIA: General endotracheal anesthesia. FLUIDS: 1500 mL of crystalloid. ESTIMATED BLOOD LOSS: 5 mL. URINE OUTPUT: 150 mL. FINDINGS: Dilated and enlarged appendix. The tip of the appendix was very dilated and filled with pus. There was a small rupture along the tip of the appendix. This was contained by the surrounding small bowel. No evidence of purulent peritonitis. COMPLICATIONS: None. INDICATIONS: The patient is a 45-year-old female who presented to the emergency room this morning with three days of worsening lower abdominal pain. Workup revealed an elevated white count with a left shift. CT scan of the abdomen and pelvis showed a dilated appendix. It was felt that the tip of the appendix had ruptured and there was a developing abscess measuring 4 cm in size which was encased in small bowel. This did not appear to be amenable to IR drainage. I visited with the patient. On physical exam, she had lower abdominal peritoneal signs. I explained the need for a laparoscopic, possible open appendectomy. We discussed the procedure, expected perioperative course, and the risks of bleeding, infection, or damage to surrounding structures. She verbalized understanding and wishes to proceed. PROCEDURE IN DETAIL: The patient was brought in to the OR and placed on the OR table in supine position. A time-out was completed verifying the patient's name, age, date of , allergies, and procedure to be performed. General endotracheal anesthesia was induced. The left arm was tucked to the patient's side and a Cadena catheter placed. The abdomen was then prepped and draped in usual standard fashion. I anesthetized the supraumbilical midline with 0.5% Marcaine plain. An 11-blade was used to make an incision along this area. I then dissected down to the fascia. The fascia was elevated with Kochers and incised sharply with Metzenbaum scissors. A 5 mm trocar was then placed into the abdomen and it was insufflated. I inserted a 5 mm 30-degree scope. There was no damage to the underlying structures from my initial port placement. A 5 mm trocar was placed into the left lower quadrant under direct visualization. I then turned my attention to the right lower quadrant. I could identify the cecum as it came down, but overlying the cecum, was small intestine which appeared to be adhered to both the right lower quadrant as well as the underlying structures. The decision was made to place a 5 mm trocar just left and lateral to the umbilicus and to upsize my left lower quadrant port to a 12 mm trocar to allow triangulation of my working ports. This was performed. I then grasped some of the overlying omentum and gently peeled this away. When I rolled the small intestines medially, I identified a necrotic and thickened appendix. I grasped the tip of the appendix and began to gently dissect the overlying small bowel away from this using gentle blunt dissection with a suction device. I was able to peel away the distal ileum and the overlying ileocecal fat pad from the appendix. The appendiceal tip was grossly dilated and large. Along the tip was a small opening. A small amount of purulence was expressed when I peeled the intestines off this area. This was controlled with suction. The appendiceal mesentery was thickened and inflamed. There did not appear to be any free purulent material within the right lower quadrant. Both Dr. Mora and I agreed that likely the CT findings were the grossly enlarged and inflamed distal appendix and phlegmon. A Harmonic scalpel device was brought into the field. I carefully dissected and ligated the appendiceal mesentery from distal to proximal. Great care was taken to avoid damage to surrounding structures. As I got close to the appendiceal base, a [place] device was used to create a window between the base of the appendix and the appendiceal mesentery. I then carried my dissection up to this window. Once the appendix was completely freed away from the appendiceal mesentery, a photograph was taken of the appendix. An endoscopic stapling device was brought into the field. I stapled and transected across the base of the appendix using a 45 mm blue load of shaq. The appendix was then placed in an Endo Catch bag and brought out through the 12 mm trocar site. The appendix was grossly enlarged and I had to enlarge my incision in the left lower quadrant in order to deliver the appendix out safely with the EndoCatch bag. A 12 mm Aayush trocar was then placed back into the left lower quadrant incision site. This allowed me to safely maintain insufflation through this bigger incision. I inspected my operative field. It was hemostatic. I irrigated the area with 500 mL of normal saline and suctioned it out. Because the rupture was contained, I decided not to place a drain in the area. I closely inspected the pelvis and made sure that any free fluid was suctioned from there as well as up at the level of the liver in the right upper quadrant. The 12 mm trocar in the left lower quadrant was then removed and I closed the fascial defect with interrupted 0 Vicryl sutures using a Perez-Pat device. The 5 mm trocar in the supraumbilical area was removed and I closed the fascia at this site with an interrupted 0 Vicryl suture using a Perez-Pat device as well. The 5 mm trocar left and lateral to the umbilicus was then used to desufflate the abdomen and was removed without issues. I then copiously irrigated all three of my laparoscopic incisions with normal saline. I then closed the skin with shaq. Sterile dressings were applied. The patient tolerated the procedure well. All counts were complete and correct at the end of the case. The Cadena catheter was removed. The patient extubated and taken to PACU in stable condition. LUZ ROB /[id number] TIMOTEO
[2020-11-11] MEDS: Piperacillin/Tazobactam 3.375 GM in Sodium Chloride 0.9% 100 ML IV SCH ×4 (01:13→21:00)
[2020-11-11] MEDS: Acetaminophen/oxyCODONE 325-5 MG Tab PO PRN (03:59)
[2020-11-11] MEDS: Lactated Ringers 1,000 ML IV SCH (05:59)
[2020-11-11 06:30] LABS: CARBON DIOXIDE,CO2 24.7 mmol/L (21.0-32.0); POTASSIUM,K 4.1 mmol/L (3.5-5.1)
--- NOTE | 2020-11-11 08:18 | PCM.SURGPN ---
- General Info Date of Service: 11/11/20 Date of Surgery/Procedure: 11/10/20 POD#: 1 Functional Status: Reports: Other (Pain along lower abdomen L>R. Nausea and vomiting yesterday. No vomiting last evening. Urinating without difficulty. ) - Review of Systems General: Reports: No Symptoms HEENT: Reports: No Symptoms Pulmonary: Reports: No Symptoms Cardiovascular: Reports: No Symptoms Genitourinary: Reports: No Symptoms Skin: Reports: No Symptoms - Patient Data Vitals - Most Recent: Last Vital Signs Temp 36.8 C 11/11/20 07:55 Pulse 74 11/11/20 07:55 Resp 16 11/11/20 07:55 BP 94/53 L 11/11/20 07:55 Pulse Ox 93 L 11/11/20 07:55 Weight - Most Recent: 86.455 kg I&O - Last 24 Hours: Intake & Output 11/10/20 11/11/20 11/11/20 22:59 06:59 14:59 Intake Total 836 2615 Output Total 100 400 Balance 736 2215 Lab Results Last 24 Hrs: Laboratory Results - last 24 hr 11/10/20 11/11/20 11/11/20 Range/Units 08:50 05:55 05:55 WBC 13.86 H (4.0-11.0) K/uL RBC 3.46 L (4.30-5.90) M/uL Hgb 11.3 L (12.0-16.0) g/dL Hct 32.8 L (36.0-46.0) % MCV 94.8 (80.0-98.0) fL MCH 32.7 H (27.0-32.0) pg MCHC 34.5 (31.0-37.0) g/dL RDW Std Deviation 42.2 (28.0-62.0) fl RDW Coeff of Bessy 12 (11.0-15.0) % Plt Count 208 (150-400) K/uL MPV 12.60 H (7.40-12.00) fL Neut % (Auto) 84.9 H (48.0-80.0) % Lymph % (Auto) 9.4 L (16.0-40.0) % [place] % (Auto) 5.3 (0.0-15.0) % Eos % (Auto) 0.3 (0.0-7.0) % Baso % (Auto) 0.1 (0.0-1.5) % Neut # (Auto) 11.8 H (1.4-5.7) K/uL Lymph # (Auto) 1.3 (0.6-2.4) K/uL [place] # (Auto) 0.7 (0.0-0.8) K/uL Eos # (Auto) 0.0 (0.0-0.7) K/uL Baso # (Auto) 0.0 (0.0-0.1) K/uL Nucleated RBC % 0.0 /100WBC Nucleated RBCs # 0 K/uL Sodium 135 L (136-145) mmol/L Potassium 4.1 (3.5-5.1) mmol/L Chloride 102 (98-107) mmol/L Carbon Dioxide 24.7 (21.0-32.0) mmol/L BUN 11 (7.0-18.0) mg/dL Creatinine 1.0 (0.6-1.0) mg/dL Est Cr Clr Drug Dosing 65.81 mL/min Estimated GFR (MDRD) 59.7 ml/min Glucose 123 H (74-106) mg/dL Calcium 7.5 L (8.5-10.1) mg/dL SARS-CoV-2 RNA (ROSINA) NEGATIVE (NEGATIVE) Med Orders - Current: Current Medications Diphenhydramine HCl (Diphenhydramine 50 Mg/Ml Sdv) 50 mg IVPUSH Q6H PRN PRN Reason: Itching Hydromorphone HCl (Hydromorphone 2 Mg/Ml Syringe) 0.5 mg IVPUSH Q1H PRN PRN Reason: Pain (severe 7-10) Last Admin: 11/10/20 19:31 Dose: 0.5 mg Documented by: Piperacillin Sod/Tazobactam (Sod 3.375 gm/ Sodium Chloride) 100 mls @ 200 mls/hr IV Q6H [facility] Last Admin: 11/11/20 01:13 Dose: 200 mls/hr Documented by: Ketorolac Tromethamine (Ketorolac 30 Mg/Ml Sdv) 30 mg IVPUSH Q6H [facility] Stop: 11/16/20 08:03 Ondansetron HCl (Ondansetron 4 Mg/2 Ml Sdv) 4 mg IVPUSH Q6H PRN PRN Reason: Nausea/Vomiting Last Admin: 11/10/20 18:42 Dose: 4 mg Documented by: Oxycodone/Acetaminophen (Acetaminophen/Oxycodone 325-5 Mg Tab) 2 tab PO Q4H PRN PRN Reason: Pain (severe 7-10) Last Admin: 11/11/20 03:59 Dose: 2 tab Documented by: Polyethylene Glycol (Polyethylene Glycol 3350 Powder 17 Gm Packet) 17 gm PO DAILY CLAUDIA Scopolamine (Scopolamine 1.5 Mg Transdermal Patch) 1.5 mg TRDERM Q72H PRN PRN Reason: Nausea Last Admin: 11/10/20 18:43 Dose: 1.5 mg Documented by: Sodium Chloride (Sodium Chloride 0.9% 10 Ml Syringe) 10 ml FLUSH ASDIRECTED PRN PRN Reason: Keep Vein Open Last Admin: 11/10/20 06:40 Dose: 10 ml Documented by: Sodium Chloride (Sodium Chloride 0.9% 2.5 Ml Syringe) 2.5 ml FLUSH ASDIRECTED PRN PRN Reason: Keep Vein Open Last Admin: 11/10/20 06:40 Dose: 2.5 ml Documented by: Sodium Chloride (Sodium Chloride 0.9% 10 Ml Syringe) 10 ml FLUSH ASDIRECTED PRN PRN Reason: Keep Vein Open Sodium Chloride (Sodium Chloride 0.9% 2.5 Ml Syringe) 2.5 ml FLUSH ASDIRECTED PRN PRN Reason: Keep Vein Open Sodium Chloride (Sodium Chloride 0.9% 10 Ml Sdv) 10 ml IV ASDIRECTED PRN PRN Reason: IV Use Discontinued Medications Bupivacaine HCl (Bupivacaine 0.5% 30 Ml Sdv) Confirm Administered Dose 30 ml .ROUTE .STK-MED ONE Stop: 11/10/20 10:35 Dexamethasone (Dexamethasone 4 Mg/Ml 5 Ml Mdv) Confirm Administered Dose 20 mg .ROUTE .STK-MED ONE Stop: 11/10/20 10:34 Fentanyl (Fentanyl 250 Mcg/5 Ml Sdv) Confirm Administered Dose 250 mcg .ROUTE .STK-MED ONE Stop: 11/10/20 10:34 Fentanyl (Fentanyl 100 Mcg/2 Ml Sdv) Confirm Administered Dose 100 mcg .ROUTE .STK-MED ONE Stop: 11/10/20 12:04 Hydromorphone HCl (Hydromorphone 2 Mg/Ml Syringe) 0.5 mg IVPUSH ONETIME ONE Stop: 11/10/20 08:18 Last Admin: 11/10/20 08:30 Dose: 0.5 mg Documented by: Lactated Ringer's (Ringers, Lactated) 1,000 mls @ 125 mls/hr IV ASDIRECTED CLAUDIA Last Admin: 11/11/20 05:59 Dose: 125 mls/hr Documented by: Piperacillin Sod/Tazobactam (Sod 3.375 gm/ Sodium Chloride) 50 mls @ 100 mls/hr IV ONETIME ONE Stop: 11/10/20 08:42 Last Admin: 11/10/20 08:30 Dose: 100 mls/hr Documented by: Acetaminophen 1,000 mg/ Premix 100 mls @ 400 mls/hr IV ONETIME PRN PRN Reason: Pain Last Admin: 11/10/20 12:43 Dose: 400 mls/hr Documented by: Iopamidol (Iopamidol 755 Mg/Ml 500 Ml Multipack Bottle) 100 ml IVPUSH ONETIME STA Stop: 11/10/20 07:02 Last Admin: 11/10/20 07:24 Dose: 100 ml Documented by: Ketorolac Tromethamine (Ketorolac 30 Mg/Ml Sdv) Confirm Administered Dose 30 mg .ROUTE .STK-MED ONE Stop: 11/10/20 10:45 Ketorolac Tromethamine (Ketorolac 30 Mg/Ml Sdv) 30 mg IVPUSH Q6H PRN PRN Reason: Pain (moderate 4-6) Stop: 11/11/20 06:46 Last Admin: 11/10/20 18:43 Dose: 30 mg Documented by: Lidocaine HCl (Lidocaine 1% 5 Ml Sdv) Confirm Administered Dose 5 ml .ROUTE .STK-MED ONE Stop: 11/10/20 10:34 Midazolam HCl (Midazolam 1 Mg/Ml 2 Ml Sdv) Confirm Administered Dose 2 mg .ROUTE .STK-MED ONE Stop: 11/10/20 10:34 Morphine Sulfate (Morphine 4 Mg/Ml Syringe) 4 mg IVPUSH ONETIME ONE Stop: 11/10/20 06:34 Last Admin: 11/10/20 06:41 Dose: 4 mg Documented by: Octyl Cyanoacrylate (Octyl 2-Cyanoacrylate 1 Tube) Confirm Administered Dose 1 applic .ROUTE .STK-MED ONE Stop: 11/10/20 10:36 Ondansetron HCl (Ondansetron 4 Mg/2 Ml Sdv) 4 mg IVPUSH ONETIME ONE Stop: 11/10/20 06:34 Last Admin: 11/10/20 06:41 Dose: 4 mg Documented by: Ondansetron HCl (Ondansetron 4 Mg/2 Ml Sdv) 4 mg IVPUSH ONETIME ONE Stop: 11/10/20 08:21 Last Admin: 11/10/20 08:29 Dose: 4 mg Documented by: Ondansetron HCl (Ondansetron 4 Mg/2 Ml Sdv) Confirm Administered Dose 4 mg .ROUTE .STK-MED ONE Stop: 11/10/20 08:22 Last Admin: 11/10/20 08:30 Dose: Not Given Documented by: Ondansetron HCl (Ondansetron 4 Mg/2 Ml Sdv) Confirm Administered Dose 4 mg .ROUTE .STK-MED ONE Stop: 11/10/20 10:34 Ondansetron HCl (Ondansetron 4 Mg/2 Ml Sdv) 4 mg IVPUSH Q4H PRN PRN Reason: Nausea Propofol (Propofol 200 Mg/20 Ml Sdv) Confirm Administered Dose 200 mg .ROUTE .STK-MED ONE Stop: 11/10/20 10:34 Rocuronium Destin (Rocuronium Destin 50 Mg/5 Ml Syringe) Confirm Administered Dose 50 mg .ROUTE .STK-MED ONE Stop: 11/10/20 10:34 Sugammadex Sodium (Sugammadex Sodium 200 Mg/2 Ml Vial) Confirm Administered Dose 200 mg .ROUTE .STK-MED ONE Stop: 11/10/20 10:44 - Exam Wound/Incisions: Healing Well, Dressing Dry and Intact General: Alert, Oriented Lungs: Normal Respiratory Effort Cardiovascular: Regular Rate GI/Abdominal Exam: Soft, Non-Tender, No Distention, No Mass Extremities: Normal Inspection Skin: Warm, Dry, Intact Sepsis Event Note - Evaluation Sepsis Screening Result: No Definite Risk - Focused Exam Vital Signs: Vital Signs Temp Pulse Resp BP Pulse Ox 11/11/20 07:55 36.8 C 74 16 94/53 L 93 L 11/11/20 04:04 36.7 C 55 L 17 99/45 L 94 L 11/11/20 00:00 36.7 C 68 16 104/48 L 94 L - Problem List & Annotations (1) Acute appendicitis with rupture SNOMED Code(s): 04068409, 54099215 Code(s): K35.32 - ACUTE APPENDICITIS WITH PERF AND LOC PERITONITIS, W/O ABSCS Status: Acute Current Visit: Yes - Problem List Review Problem List Initiated/Reviewed/Updated: Yes - My Orders Last 24 Hours: Active Orders 24 hr Category Date Time Status Patient Status [ADT] Routine ADT 11/10/20 12:42 Active Antiembolic Devices [RC] PER UNIT ROUTINE Care 11/10/20 10:38 Active Oxygen Therapy [RC] PRN Care 11/10/20 12:43 Active RT Incentive Spirometry [RC] Q1HWA Care 11/10/20 12:43 Active Up ad Ivania [RC] ASDIRECTED Care 11/10/20 12:43 Active Verify Patient Consent Obtain [RC] ASDIRECTED Care 11/10/20 10:37 Active Vital Signs [RC] Q4H Care 11/10/20 12:43 Active Regular Diet [DIET] Diet 11/10/20 Dinner Active BASIC METABOLIC PANEL,BMP [CHEM] AM Lab 11/12/20 05:11 Ordered BASIC METABOLIC PANEL,BMP [CHEM] AM Lab 11/13/20 05:11 Ordered CBC WITH AUTO DIFF [HEME] AM Lab 11/12/20 05:11 Ordered CBC WITH AUTO DIFF [HEME] AM Lab 11/13/20 05:11 Ordered Acetaminophen/oxyCODONE [Percocet 325-5 MG] Med 11/10/20 12:44 Active 2 tab PO Q4H PRN HYDROmorphone [Dilaudid] Med 11/10/20 12:43 Active 0.5 mg IVPUSH Q1H PRN Ketorolac [Toradol] Med 11/11/20 08:15 Active 30 mg IVPUSH Q6H Ondansetron [Zofran] Med 11/10/20 12:45 Active 4 mg IVPUSH Q6H PRN Piperacillin/Tazobactam [Piperacil-Tazobact] 3.375 gm Med 11/10/20 14:00 Active Sodium Chloride 0.9% [Normal Saline] 100 ml IV Q6H Scopolamine [Transderm-Scop] Med 11/10/20 12:45 Active 1.5 mg TRDERM Q72H PRN Sodium Chloride 0.9% [Normal Saline] Med 11/10/20 10:37 Active 10 ml IV ASDIRECTED PRN Sodium Chloride 0.9% [Saline Flush] Med 11/10/20 10:37 Active 10 ml FLUSH ASDIRECTED PRN Sodium Chloride 0.9% [Saline Flush] Med 11/10/20 10:37 Active 2.5 ml FLUSH ASDIRECTED PRN diphenhydrAMINE [Benadryl] Med 11/10/20 12:46 Active 50 mg IVPUSH Q6H PRN polyethylene glycoL 3350 [MiraLAX] Med 11/11/20 09:00 Active 17 gm PO DAILY Peripheral IV Insertion Adult [OM.PC] Routine Oth 11/10/20 10:37 Ordered Sequential Compression Device [OM.PC] Routine Oth 11/10/20 10:37 Ordered Resuscitation Status Routine Resus Stat 11/10/20 10:37 Ordered Medication Orders Diphenhydramine HCl (Diphenhydramine 50 Mg/Ml Sdv) 50 mg IVPUSH Q6H PRN PRN Reason: Itching Hydromorphone HCl (Hydromorphone 2 Mg/Ml Syringe) 0.5 mg IVPUSH Q1H PRN PRN Reason: Pain (severe 7-10) Last Admin: 11/10/20 19:31 Dose: 0.5 mg Documented by: Admin: 11/10/20 13:26 Dose: 0.5 mg Documented by: MADY Piperacillin Sod/Tazobactam (Sod 3.375 gm/ Sodium Chloride) 100 mls @ 200 mls/hr IV Q6H [facility] Last Admin: 11/11/20 01:13 Dose: 200 mls/hr Documented by: Infusion: 11/10/20 20:12 Dose: 200 mls/hr Documented by: Admin: 11/10/20 19:42 Dose: 200 mls/hr Documented by: Infusion: 11/10/20 14:12 Dose: 200 mls/hr Documented by: Admin: 11/10/20 13:42 Dose: 200 mls/hr Documented by: DEE Ketorolac Tromethamine (Ketorolac 30 Mg/Ml Sdv) 30 mg IVPUSH Q6H CLAUDIA Stop: 11/16/20 08:03 Ondansetron HCl (Ondansetron 4 Mg/2 Ml Sdv) 4 mg IVPUSH Q6H PRN PRN Reason: Nausea/Vomiting Last Admin: 11/10/20 18:42 Dose: 4 mg Documented by: DEE Oxycodone/Acetaminophen (Acetaminophen/Oxycodone 325-5 Mg Tab) 2 tab PO Q4H PRN PRN Reason: Pain (severe 7-10) Last Admin: 11/11/20 03:59 Dose: 2 tab Documented by: Admin: 11/10/20 15:11 Dose: 2 tab Documented by: DEE Polyethylene Glycol (Polyethylene Glycol 3350 Powder 17 Gm Packet) 17 gm PO DAILY CLAUDIA Scopolamine (Scopolamine 1.5 Mg Transdermal Patch) 1.5 mg TRDERM Q72H PRN PRN Reason: Nausea Last Admin: 11/10/20 18:43 Dose: 1.5 mg Documented by: DEE Sodium Chloride (Sodium Chloride 0.9% 10 Ml Syringe) 10 ml FLUSH ASDIRECTED PRN PRN Reason: Keep Vein Open Last Admin: 11/10/20 06:40 Dose: 10 ml Documented by: RUDDYDNIC Sodium Chloride (Sodium Chloride 0.9% 2.5 Ml Syringe) 2.5 ml FLUSH ASDIRECTED PRN PRN Reason: Keep Vein Open Last Admin: 11/10/20 06:40 Dose: 2.5 ml Documented by: RUDDYDNIC Sodium Chloride (Sodium Chloride 0.9% 10 Ml Syringe) 10 ml FLUSH ASDIRECTED PRN PRN Reason: Keep Vein Open Sodium Chloride (Sodium Chloride 0.9% 2.5 Ml Syringe) 2.5 ml FLUSH ASDIRECTED PRN PRN Reason: Keep Vein Open Sodium Chloride (Sodium Chloride 0.9% 10 Ml Sdv) 10 ml IV ASDIRECTED PRN PRN Reason: IV Use - Plan Plan (Free Text/Narrative):: -Pain: Scheduled toradol. Prn percocet and IV dilaudid. -CV/Pulm: VSS. Encourage IS use and out of bed activity. -GI: Zofran and scopolamine patch. D/C IVF. Diet as tolerated. Miralax daily. -Renal: BUN/Cr WNL. D/C IVF. -ID: Continue IV zosyn. WBC slightly increased. No fever. -Heme: Decreased likely due to surgery and fluids -Px: SCDs, lovenox
[2020-11-11] MEDS: Ketorolac 30 MG/ML SDV IVPUSH SCH ×3 (08:31→20:51)
[2020-11-11] MEDS: Polyethylene Glycol 3350 Powder 17 GM Packet PO SCH (08:38)
[2020-11-11] MEDS: Enoxaparin 40 MG/0.4 ML Syringe SUBCUT SCH (08:38)
--- NOTE | 2020-11-11 09:44 | PCM48HPAN ---
Post Anesthesia Note - EVALUATION WITHIN 48HRS OF ANESTHETIC Vital Signs in Normal Range: Yes Patient Participated in Evaluation: Yes Respiratory Function Stable: Yes Airway Patent: Yes Cardiovascular Function Stable: Yes Hydration Status Stable: Yes Pain Control Satisfactory: Yes Nausea and Vomiting Control Satisfactory: Yes Mental Status Recovered: Yes Vital Signs: Last Vital Signs Temp 36.8 C 11/11/20 07:55 Pulse 74 11/11/20 07:55 Resp 16 11/11/20 07:55 BP 94/53 L 11/11/20 07:55 Pulse Ox 93 L 11/11/20 07:55
[2020-11-11] MEDS: Ondansetron 4 MG/2 ML SDV IVPUSH PRN ×2 (14:20→20:57)
[2020-11-11] MEDS: Acetaminophen/HYDROcodone 325-5 MG Tab PO PRN (16:36)
[2020-11-11] MEDS: Multivitamin Tab PO SCH (20:50)
[2020-11-12] MEDS: Ketorolac 30 MG/ML SDV IVPUSH SCH ×4 (01:56→21:13)
[2020-11-12] MEDS: Piperacillin/Tazobactam 3.375 GM in Sodium Chloride 0.9% 100 ML IV SCH ×4 (02:00→21:18)
[2020-11-12] MEDS: Acetaminophen/HYDROcodone 325-5 MG Tab PO PRN (03:06)
[2020-11-12] MEDS: Scopolamine 1.5 MG Transdermal Patch TRDERM PRN (03:07)
[2020-11-12] MEDS: Ondansetron 4 MG/2 ML SDV IVPUSH PRN ×3 (03:08→14:53)
[2020-11-12 06:01] LABS: POTASSIUM,K 3.3 mmol/L (3.5-5.1)
[2020-11-12] MEDS ORDERED: Acetaminophen 1,000 MG in Premix Bag 1 BAG IV PRN (07:53)
[2020-11-12] MEDS ORDERED: Furosemide 20 MG/2 ML VIAL IVPUSH ONE (08:00)
[2020-11-12] MEDS ORDERED: Potassium Chloride 20 MEQ Tab.ER PO ONE (09:00)
--- NOTE | 2020-11-12 10:24 | PCM.SURGPN ---
- General Info Date of Service: 11/12/20 Date of Surgery/Procedure: 11/10/20 POD#: 2 - Review of Systems General: Reports: Malaise HEENT: Reports: Headaches Pulmonary: Reports: No Symptoms Cardiovascular: Reports: Other (Feels "puffy" ) Gastrointestinal: Reports: Abdominal Pain (LLQ incision ), Flatus, Nausea, Vomiting Genitourinary: Reports: No Symptoms Musculoskeletal: Reports: No Symptoms Skin: Reports: No Symptoms - Patient Data Vitals - Most Recent: Last Vital Signs Temp 36.9 C 11/12/20 08:00 Pulse 74 11/12/20 08:00 Resp 16 11/12/20 08:00 BP 111/65 11/12/20 08:00 Pulse Ox 92 L 11/12/20 08:00 Weight - Most Recent: 86.455 kg I&O - Last 24 Hours: Intake & Output 11/11/20 11/12/20 11/12/20 22:59 06:59 14:59 Intake Total 1480 900 Output Total 600 300 Balance 880 600 Lab Results Last 24 Hrs: Laboratory Results - last 24 hr 11/12/20 11/12/20 Range/Units 05:05 05:05 WBC 10.08 (4.0-11.0) K/uL RBC 3.11 L (4.30-5.90) M/uL Hgb 10.1 L (12.0-16.0) g/dL Hct 29.0 L (36.0-46.0) % MCV 93.2 (80.0-98.0) fL MCH 32.5 H (27.0-32.0) pg MCHC 34.8 (31.0-37.0) g/dL RDW Std Deviation 41.3 (28.0-62.0) fl RDW Coeff of Bessy 12 (11.0-15.0) % Plt Count 168 (150-400) K/uL MPV 12.90 H (7.40-12.00) fL Neut % (Auto) 83.6 H (48.0-80.0) % Lymph % (Auto) 8.1 L (16.0-40.0) % [place] % (Auto) 7.4 (0.0-15.0) % Eos % (Auto) 0.5 (0.0-7.0) % Baso % (Auto) 0.4 (0.0-1.5) % Neut # (Auto) 8.4 H (1.4-5.7) K/uL Lymph # (Auto) 0.8 (0.6-2.4) K/uL [place] # (Auto) 0.8 (0.0-0.8) K/uL Eos # (Auto) 0.1 (0.0-0.7) K/uL Baso # (Auto) 0.0 (0.0-0.1) K/uL Nucleated RBC % 0.0 /100WBC Nucleated RBCs # 0 K/uL Sodium 131 L (136-145) mmol/L Potassium 3.3 L (3.5-5.1) mmol/L Chloride 98 (98-107) mmol/L Carbon Dioxide 26.0 (21.0-32.0) mmol/L BUN 11 (7.0-18.0) mg/dL Creatinine 1.0 (0.6-1.0) mg/dL Est Cr Clr Drug Dosing 65.81 mL/min Estimated GFR (MDRD) 59.7 ml/min Glucose 110 H (74-106) mg/dL Calcium 7.2 L (8.5-10.1) mg/dL Med Orders - Current: Current Medications Diphenhydramine HCl (Diphenhydramine 50 Mg/Ml Sdv) 50 mg IVPUSH Q6H PRN PRN Reason: Itching Enoxaparin Sodium (Enoxaparin 40 Mg/0.4 Ml Syringe) 40 mg SUBCUT Q24H [facility] Last Admin: 11/11/20 08:38 Dose: 40 mg Documented by: Hydromorphone HCl (Hydromorphone 2 Mg/Ml Syringe) 0.5 mg IVPUSH Q1H PRN PRN Reason: Pain (severe 7-10) Last Admin: 11/10/20 19:31 Dose: 0.5 mg Documented by: Piperacillin Sod/Tazobactam (Sod 3.375 gm/ Sodium Chloride) 100 mls @ 200 mls/hr IV Q6H [facility] Last Admin: 11/12/20 08:51 Dose: 200 mls/hr Documented by: Acetaminophen 1,000 mg/ Premix 100 mls @ 400 mls/hr IV Q6H [facility] Ketorolac Tromethamine (Ketorolac 30 Mg/Ml Sdv) 30 mg IVPUSH Q6H [facility] Stop: 11/16/20 08:03 Last Admin: 11/12/20 08:10 Dose: 30 mg Documented by: Multivitamins/Minerals/Vitamin C (Multivitamin Tab) 1 tab PO BEDTIME [facility] Last Admin: 11/11/20 20:50 Dose: 1 tab Documented by: Ondansetron HCl (Ondansetron 4 Mg/2 Ml Sdv) 4 mg IVPUSH Q6H PRN PRN Reason: Nausea/Vomiting Last Admin: 11/12/20 08:23 Dose: 4 mg Documented by: Polyethylene Glycol (Polyethylene Glycol 3350 Powder 17 Gm Packet) 17 gm PO DAILY [facility] Last Admin: 11/11/20 08:38 Dose: 17 gm Documented by: Scopolamine (Scopolamine 1.5 Mg Transdermal Patch) 1.5 mg TRDERM Q72H PRN PRN Reason: Nausea Last Admin: 11/12/20 03:07 Dose: 1.5 mg Documented by: Sodium Chloride (Sodium Chloride 0.9% 10 Ml Syringe) 10 ml FLUSH ASDIRECTED PRN PRN Reason: Keep Vein Open Last Admin: 11/10/20 06:40 Dose: 10 ml Documented by: Sodium Chloride (Sodium Chloride 0.9% 2.5 Ml Syringe) 2.5 ml FLUSH ASDIRECTED PRN PRN Reason: Keep Vein Open Last Admin: 11/10/20 06:40 Dose: 2.5 ml Documented by: Sodium Chloride (Sodium Chloride 0.9% 10 Ml Syringe) 10 ml FLUSH ASDIRECTED PRN PRN Reason: Keep Vein Open Sodium Chloride (Sodium Chloride 0.9% 2.5 Ml Syringe) 2.5 ml FLUSH ASDIRECTED PRN PRN Reason: Keep Vein Open Sodium Chloride (Sodium Chloride 0.9% 10 Ml Sdv) 10 ml IV ASDIRECTED PRN PRN Reason: IV Use Discontinued Medications Hydrocodone Bitart/Acetaminophen (Acetaminophen/Hydrocodone 325-5 Mg Tab) 2 tab PO Q4H PRN PRN Reason: Pain Last Admin: 11/12/20 03:06 Dose: 2 tab Documented by: Bupivacaine HCl (Bupivacaine 0.5% 30 Ml Sdv) Confirm Administered Dose 30 ml .ROUTE .[facility]-MED ONE Stop: 11/10/20 10:35 Dexamethasone (Dexamethasone 4 Mg/Ml 5 Ml Mdv) Confirm Administered Dose 20 mg .ROUTE .[facility]-MED ONE Stop: 11/10/20 10:34 Fentanyl (Fentanyl 250 Mcg/5 Ml Sdv) Confirm Administered Dose 250 mcg .ROUTE .STK-MED ONE Stop: 11/10/20 10:34 Fentanyl (Fentanyl 100 Mcg/2 Ml Sdv) Confirm Administered Dose 100 mcg .ROUTE .STK-MED ONE Stop: 11/10/20 12:04 Furosemide (Furosemide 20 Mg/2 Ml Vial) 10 mg IVPUSH NOW ONE Stop: 11/12/20 08:01 Last Admin: 11/12/20 08:16 Dose: 10 mg Documented by: Hydromorphone HCl (Hydromorphone 2 Mg/Ml Syringe) 0.5 mg IVPUSH ONETIME ONE Stop: 11/10/20 08:18 Last Admin: 11/10/20 08:30 Dose: 0.5 mg Documented by: Lactated Ringer's (Ringers, Lactated) 1,000 mls @ 125 mls/hr IV ASDIRECTED [facility] Last Admin: 11/11/20 05:59 Dose: 125 mls/hr Documented by: Piperacillin Sod/Tazobactam (Sod 3.375 gm/ Sodium Chloride) 50 mls @ 100 mls/hr IV ONETIME ONE Stop: 11/10/20 08:42 Last Admin: 11/10/20 08:30 Dose: 100 mls/hr Documented by: Acetaminophen 1,000 mg/ Premix 100 mls @ 400 mls/hr IV ONETIME PRN PRN Reason: Pain Last Admin: 11/10/20 12:43 Dose: 400 mls/hr Documented by: Acetaminophen 1,000 mg/ Premix 100 mls @ 400 mls/hr IV Q6H PRN PRN Reason: Pain Last Admin: 11/12/20 08:24 Dose: 400 mls/hr Documented by: Iopamidol (Iopamidol 755 Mg/Ml 500 Ml Multipack Bottle) 100 ml IVPUSH ONETIME STA Stop: 11/10/20 07:02 Last Admin: 11/10/20 07:24 Dose: 100 ml Documented by: Ketorolac Tromethamine (Ketorolac 30 Mg/Ml Sdv) Confirm Administered Dose 30 mg .ROUTE .STK-MED ONE Stop: 11/10/20 10:45 Ketorolac Tromethamine (Ketorolac 30 Mg/Ml Sdv) 30 mg IVPUSH Q6H PRN PRN Reason: Pain (moderate 4-6) Stop: 11/11/20 06:46 Last Admin: 11/10/20 18:43 Dose: 30 mg Documented by: Lidocaine HCl (Lidocaine 1% 5 Ml Sdv) Confirm Administered Dose 5 ml .ROUTE .STK-MED ONE Stop: 11/10/20 10:34 Midazolam HCl (Midazolam 1 Mg/Ml 2 Ml Sdv) Confirm Administered Dose 2 mg .ROUTE .STK-MED ONE Stop: 11/10/20 10:34 Morphine Sulfate (Morphine 4 Mg/Ml Syringe) 4 mg IVPUSH ONETIME ONE Stop: 11/10/20 06:34 Last Admin: 11/10/20 06:41 Dose: 4 mg Documented by: Octyl Cyanoacrylate (Octyl 2-Cyanoacrylate 1 Tube) Confirm Administered Dose 1 applic .ROUTE .STK-MED ONE Stop: 11/10/20 10:36 Ondansetron HCl (Ondansetron 4 Mg/2 Ml Sdv) 4 mg IVPUSH ONETIME ONE Stop: 11/10/20 06:34 Last Admin: 11/10/20 06:41 Dose: 4 mg Documented by: Ondansetron HCl (Ondansetron 4 Mg/2 Ml Sdv) 4 mg IVPUSH ONETIME ONE Stop: 11/10/20 08:21 Last Admin: 11/10/20 08:29 Dose: 4 mg Documented by: Ondansetron HCl (Ondansetron 4 Mg/2 Ml Sdv) Confirm Administered Dose 4 mg .ROUTE .STK-MED ONE Stop: 11/10/20 08:22 Last Admin: 11/10/20 08:30 Dose: Not Given Documented by: Ondansetron HCl (Ondansetron 4 Mg/2 Ml Sdv) Confirm Administered Dose 4 mg .ROUTE .STK-MED ONE Stop: 11/10/20 10:34 Ondansetron HCl (Ondansetron 4 Mg/2 Ml Sdv) 4 mg IVPUSH Q4H PRN PRN Reason: Nausea Oxycodone/Acetaminophen (Acetaminophen/Oxycodone 325-5 Mg Tab) 2 tab PO Q4H PRN PRN Reason: Pain (severe 7-10) Last Admin: 11/11/20 03:59 Dose: 2 tab Documented by: Potassium Chloride (Potassium Chloride 20 Meq Tab.Er) 40 meq PO ONETIME ONE Stop: 11/12/20 09:01 Propofol (Propofol 200 Mg/20 Ml Sdv) Confirm Administered Dose 200 mg .ROUTE .STK-MED ONE Stop: 11/10/20 10:34 Rocuronium Ariton (Rocuronium Ariton 50 Mg/5 Ml Syringe) Confirm Administered Dose 50 mg .ROUTE .STK-MED ONE Stop: 11/10/20 10:34 Sugammadex Sodium (Sugammadex Sodium 200 Mg/2 Ml Vial) Confirm Administered Dose 200 mg .ROUTE .STK-MED ONE Stop: 11/10/20 10:44 - Exam Wound/Incisions: Healing Well, No Drainage General: Alert, Oriented HEENT: Pupils Equal, Pupils Reactive Lungs: Clear to Auscultation, Normal Respiratory Effort Cardiovascular: Regular Rate, Regular Rhythm GI/Abdominal Exam: Normal Bowel Sounds, Soft, Non-Tender, No Distention, No Mass Extremities: Normal Inspection, Normal Range of Motion Skin: Warm, Dry, Intact Psy/Mental Status: Alert, Normal Affect, Normal Mood Sepsis Event Note - Evaluation Sepsis Screening Result: No Definite Risk - Focused Exam Vital Signs: Vital Signs Temp Pulse Resp BP Pulse Ox 11/12/20 08:00 36.9 C 74 16 111/65 92 L 11/12/20 04:00 36.9 C 87 16 112/59 L 92 L 11/12/20 00:00 36.9 C 63 16 105/59 L 94 L - Problem List & Annotations (1) Acute appendicitis with rupture SNOMED Code(s): 97872358, 23633430 Code(s): K35.32 - ACUTE APPENDICITIS WITH PERF AND LOC PERITONITIS, W/O ABSCS Status: Acute Current Visit: Yes (2) Hyponatremia SNOMED Code(s): 83939272 Code(s): E87.1 - HYPO-OSMOLALITY AND HYPONATREMIA Status: Acute Current Visit: Yes (3) Hypokalemia SNOMED Code(s): 50183555 Code(s): E87.6 - HYPOKALEMIA Status: Acute Current Visit: Yes - Problem List Review Problem List Initiated/Reviewed/Updated: Yes - My Orders Last 24 Hours: Active Orders 24 hr Category Date Time Status BASIC METABOLIC PANEL,BMP [CHEM] AM Lab 11/13/20 05:11 Ordered BASIC METABOLIC PANEL,BMP [CHEM] Timed Lab 11/12/20 16:00 Ordered CBC WITH AUTO DIFF [HEME] AM Lab 11/13/20 05:11 Ordered MAGNESIUM [CHEM] Timed Lab 11/12/20 16:00 Ordered PHOSPHORUS [CHEM] Timed Lab 11/12/20 16:00 Ordered Acetaminophen [Ofirmev 1000 mg/100 ml] 1,000 mg Med 11/12/20 14:20 Ordered Premix Bag 1 bag IV Q6H Multivitamins [Tab-A-Anastasiya] Med 11/11/20 21:00 Active 1 tab PO BEDTIME Medication Orders Diphenhydramine HCl (Diphenhydramine 50 Mg/Ml Sdv) 50 mg IVPUSH Q6H PRN PRN Reason: Itching Enoxaparin Sodium (Enoxaparin 40 Mg/0.4 Ml Syringe) 40 mg SUBCUT Q24H [facility] Last Admin: 11/11/20 08:38 Dose: 40 mg Documented by: DEMETRICE Hydromorphone HCl (Hydromorphone 2 Mg/Ml Syringe) 0.5 mg IVPUSH Q1H PRN PRN Reason: Pain (severe 7-10) Last Admin: 11/10/20 19:31 Dose: 0.5 mg Documented by: Admin: 11/10/20 13:26 Dose: 0.5 mg Documented by: MADY Piperacillin Sod/Tazobactam (Sod 3.375 gm/ Sodium Chloride) 100 mls @ 200 mls/hr IV Q6H [facility] Last Admin: 11/12/20 08:51 Dose: 200 mls/hr Documented by: Infusion: 11/12/20 02:30 Dose: 200 mls/hr Documented by: Admin: 11/12/20 02:00 Dose: 200 mls/hr Documented by: Infusion: 11/11/20 21:30 Dose: 200 mls/hr Documented by: Admin: 11/11/20 21:00 Dose: 200 mls/hr Documented by: Infusion: 11/11/20 14:56 Dose: 200 mls/hr Documented by: Admin: 11/11/20 14:26 Dose: 200 mls/hr Documented by: Infusion: 11/11/20 09:06 Dose: 200 mls/hr Documented by: Admin: 11/11/20 08:36 Dose: 200 mls/hr Documented by: Infusion: 11/11/20 01:43 Dose: 200 mls/hr Documented by: Admin: 11/11/20 01:13 Dose: 200 mls/hr Documented by: Infusion: 11/10/20 20:12 Dose: 200 mls/hr Documented by: Admin: 11/10/20 19:42 Dose: 200 mls/hr Documented by: Infusion: 11/10/20 14:12 Dose: 200 mls/hr Documented by: Admin: 11/10/20 13:42 Dose: 200 mls/hr Documented by: DEE Acetaminophen 1,000 mg/ Premix 100 mls @ 400 mls/hr IV Q6H [facility] Ketorolac Tromethamine (Ketorolac 30 Mg/Ml Sdv) 30 mg IVPUSH Q6H [facility] Stop: 11/16/20 08:03 Last Admin: 11/12/20 08:10 Dose: 30 mg Documented by: Admin: 11/12/20 01:56 Dose: 30 mg Documented by: Admin: 11/11/20 20:51 Dose: 30 mg Documented by: Admin: 11/11/20 14:24 Dose: 30 mg Documented by: Admin: 11/11/20 08:31 Dose: 30 mg Documented by: DEMETRICE Multivitamins/Minerals/Vitamin C (Multivitamin Tab) 1 tab PO BEDTIME [facility] Last Admin: 11/11/20 20:50 Dose: 1 tab Documented by: NIKUNJ Ondansetron HCl (Ondansetron 4 Mg/2 Ml Sdv) 4 mg IVPUSH Q6H PRN PRN Reason: Nausea/Vomiting Last Admin: 11/12/20 08:23 Dose: 4 mg Documented by: Admin: 11/12/20 03:08 Dose: 4 mg Documented by: Admin: 11/11/20 20:57 Dose: 4 mg Documented by: Admin: 11/11/20 14:20 Dose: 4 mg Documented by: Admin: 11/10/20 18:42 Dose: 4 mg Documented by: DEE Polyethylene Glycol (Polyethylene Glycol 3350 Powder 17 Gm Packet) 17 gm PO DAILY [facility] Last Admin: 11/11/20 08:38 Dose: 17 gm Documented by: DEMETRICE Scopolamine (Scopolamine 1.5 Mg Transdermal Patch) 1.5 mg TRDERM Q72H PRN PRN Reason: Nausea Last Admin: 11/12/20 03:07 Dose: 1.5 mg Documented by: Admin: 11/10/20 18:43 Dose: 1.5 mg Documented by: DEE Sodium Chloride (Sodium Chloride 0.9% 10 Ml Syringe) 10 ml FLUSH ASDIRECTED PRN PRN Reason: Keep Vein Open Last Admin: 11/10/20 06:40 Dose: 10 ml Documented by: RUDDYDNIC Sodium Chloride (Sodium Chloride 0.9% 2.5 Ml Syringe) 2.5 ml FLUSH ASDIRECTED PRN PRN Reason: Keep Vein Open Last Admin: 11/10/20 06:40 Dose: 2.5 ml Documented by: RUDDYDNIC Sodium Chloride (Sodium Chloride 0.9% 10 Ml Syringe) 10 ml FLUSH ASDIRECTED PRN PRN Reason: Keep Vein Open Sodium Chloride (Sodium Chloride 0.9% 2.5 Ml Syringe) 2.5 ml FLUSH ASDIRECTED PRN PRN Reason: Keep Vein Open Sodium Chloride (Sodium Chloride 0.9% 10 Ml Sdv) 10 ml IV ASDIRECTED PRN PRN Reason: IV Use - Plan Plan (Free Text/Narrative):: The patient's abdomen is flat soft and nontender. She does have bowel sounds and is passing flatus. Her nausea and vomiting seem to be associated with food but I am concerned that it may also be from narcotics. I will schedule IV Tylenol and IV Toradol. I will see if sticking to that for 1 day improves her bowel fun ction and decrease her nausea. She still has IV Dilaudid as needed for pain. She's been complaining of headaches. Her sodium is down to 131 today. Her hemoglobin is down another gram as well. She appears to be 6 L up in fluids. She complains of feeling puffy but I see no signs of edema. I will give her 1 time dose of IV Lasix to see if this can get rid of some fluids. She is also hypokalemic and I will replace that. Hopefully by bouncing her electrolytes it also helps with bowel motility and her headaches. The IV Tylenol may help with her headaches as well. Will repeat a BMP as well as mag and phosphorus this evening at 4:00. Ok to continue a regular diet however I encouraged her to eat salty foods and to eat small frequent meals.
[2020-11-12] MEDS: Polyethylene Glycol 3350 Powder 17 GM Packet PO SCH (10:58)
[2020-11-12] MEDS: Enoxaparin 40 MG/0.4 ML Syringe SUBCUT SCH (10:58)
[2020-11-12] MEDS: Acetaminophen 1,000 MG in Premix Bag 1 BAG IV SCH ×2 (14:56→22:21)
[2020-11-12 16:41] LABS: BLOOD UREA NITROGEN,BUN 8 mg/dL (7.0-18.0); CARBON DIOXIDE,CO2 26.4 mmol/L (21.0-32.0); CHLORIDE,CL 98 mmol/L (98-107); GLUCOSE RANDOM 109 mg/dL (74-106); POTASSIUM,K 3.5 mmol/L (3.5-5.1); SODIUM,NA 131 mmol/L (136-145)
[2020-11-12] MEDS: Metoclopramide 10 MG/2 ML SDV IVPUSH SCH (17:11)
[2020-11-12] MEDS: Phosphorus #1 250 MG Tab PO SCH (21:12)
[2020-11-12] MEDS: Multivitamin Tab PO SCH (21:12)
[2020-11-13] MEDS: Ketorolac 30 MG/ML SDV IVPUSH SCH ×2 (01:47→08:08)
[2020-11-13] MEDS: Metoclopramide 10 MG/2 ML SDV IVPUSH SCH ×2 (01:51→06:26)
[2020-11-13] MEDS: Phosphorus #1 250 MG Tab PO SCH ×2 (01:54→06:26)
[2020-11-13] MEDS: Acetaminophen 1,000 MG in Premix Bag 1 BAG IV SCH (01:55)
[2020-11-13] MEDS: Piperacillin/Tazobactam 3.375 GM in Sodium Chloride 0.9% 100 ML IV SCH ×2 (02:21→08:12)
[2020-11-13 06:10] LABS: CARBON DIOXIDE,CO2 25.7 mmol/L (21.0-32.0); POTASSIUM,K 3.6 mmol/L (3.5-5.1)
--- NOTE | 2020-11-13 08:08 | PCM.DCSUM1 ---
Discharge Summary - Hospital Course Free Text/Narrative:: Patient is a 45 year old female who presented to the er with 3 days of abdominal pain. CT of the abdomen pelvis showed ruptured appendicitis with questionable abscess. She underwent a laparoscopic appendectomy and was found to have a contained rupture associated with phlegmon and a walled off abscess (<3cm). There was no free purulent fluid. She was admitted to the floor afterwards. Her diet was advanced however she was very nauseated. I tried switching her narcotic but she continued to feel nauseous and had several episodes of emesis. She did not have abdominal distension and started passing flatus on POD # 2. She had a BM of POD #3. Her sodium dropped to 131. Her hgb dropped as well. Her fluids were stopped on POD #1. On POD #2 I gave her lasix with a good response. She had 1800ml of urine out. I stopped her narcotic medications and scheduled IV tylenol and IV toradol. I scheduled reglan. This morning POD #3 she feels much improved. Her sodium corrected. Her electrolytes were corrected yesterday as well. She was able to tolerate food and did not become nauseated. Her vitals are stable. She has been on IV zosyn since admission. Her WBC is within normal range. she will be switched to cipro and flagyl. She is cleared for discharge. - Discharge Data Discharge Date: 11/13/20 Discharge Disposition: Home, Self-Care 01 Condition: Good - Referral to Home Health Primary Care Physician: Titi Conley MD - Discharge Diagnosis/Problem(s) (1) Acute appendicitis with rupture SNOMED Code(s): 31972595, [id number] ICD Code: K35.32 - ACUTE APPENDICITIS WITH PERF AND LOC PERITONITIS, W/O ABSCS Status: Acute Current Visit: Yes (2) Hyponatremia SNOMED Code(s): 96343541 ICD Code: E87.1 - HYPO-OSMOLALITY AND HYPONATREMIA Status: Acute Current Visit: Yes (3) Hypokalemia SNOMED Code(s): 43760012 ICD Code: E87.6 - HYPOKALEMIA Status: Acute Current Visit: Yes - Patient Summary/Data Operative Procedure(s) Performed: Laparoscopic appendectomy - Patient Instructions Diet: Regular Diet as Tolerated Diet, Other: Small frequent meals Activity: No Lifting Over 20 Pounds (for 4 weeks after surgery ), Rest and Relax Today Driving: Do Not Drive (for one week after surgery ) Showering/Bathing: May Shower, No Tub Bathing/Swimming (for 2 weeks ) Wound/Incision Care: Keep Operative Site/Wound Site Clean and Dry Notify Provider of: Fever, Increased Pain, Swelling and Redness, Drainage, Nausea and/or Vomiting - Discharge Plan *PRESCRIPTION DRUG MONITORING PROGRAM REVIEWED*: Not Applicable *COPY OF PRESCRIPTION DRUG MONITORING REPORT IN PATIENT PRAMOD: Not Applicable Prescriptions/Med Rec: Ciprofloxacin HCl [Cipro] 500 mg PO BID #4 tablet metroNIDAZOLE [Flagyl] 500 mg PO Q8H #6 tab Metoclopramide HCl [Reglan] 10 mg PO Q6HR PRN #5 tablet PRN Reason: Nausea Multivitamins [Tab-A-Anastasiya] 1 tab PO BEDTIME #14 tablet Home Medications: Home Meds Levothyroxine 112 mcg PO DAILY 11/10/20 [History] metFORMIN [Glucophage] 500 mg PO DAILY 11/10/20 [History] Ciprofloxacin HCl [Cipro] 500 mg PO BID #4 tablet 11/13/20 [Rx] Metoclopramide HCl [Reglan] 10 mg PO Q6HR PRN #5 tablet 11/13/20 [Rx] Multivitamins [Tab-A-Anastasiya] 1 tab PO BEDTIME #14 tablet 11/13/20 [Rx] metroNIDAZOLE [Flagyl] 500 mg PO Q8H #6 tab 11/13/20 [Rx] Patient Handouts: Laparoscopic Appendectomy, Adult, Care After, [id number] Forms: ED Department Discharge Referrals: Sonia Chaparro MD [Physician] - 11/19/20 8:00 am - Discharge Summary/Plan Comment DC Time >30 min.: No - General Info Functional Status: Reports: Pain Controlled, Tolerating Diet, Ambulating, Urinating - Review of Systems General: Reports: No Symptoms HEENT: Reports: No Symptoms Pulmonary: Reports: No Symptoms Cardiovascular: Reports: No Symptoms Gastrointestinal: Reports: No Symptoms Genitourinary: Reports: No Symptoms Musculoskeletal: Reports: No Symptoms - Patient Data Vitals - Most Recent: Last Vital Signs Temp 36.9 C 11/13/20 04:00 Pulse 86 11/13/20 04:00 Resp 14 11/13/20 04:00 BP 90/39 L 11/13/20 04:00 Pulse Ox 98 11/13/20 04:00 Weight - Most Recent: 86.455 kg I&O - Last 24 hours: Intake & Output 11/12/20 11/13/20 11/13/20 22:59 06:59 14:59 Intake Total 1740 300 Output Total 2250 72801 Balance -510 -55187 Lab Results - Last 24 hrs: Laboratory Results - last 24 hr 11/12/20 11/13/20 11/13/20 Range/Units 16:03 05:04 05:04 WBC 6.85 (4.0-11.0) K/uL RBC 3.08 L (4.30-5.90) M/uL Hgb 10.2 L (12.0-16.0) g/dL Hct 28.7 L (36.0-46.0) % MCV 93.2 (80.0-98.0) fL MCH 33.1 H (27.0-32.0) pg MCHC 35.5 (31.0-37.0) g/dL RDW Std Deviation 41.5 (28.0-62.0) fl RDW Coeff of Bessy 12 (11.0-15.0) % Plt Count 171 (150-400) K/uL MPV 13.00 H (7.40-12.00) fL Neut % (Auto) 72.9 (48.0-80.0) % Lymph % (Auto) 15.9 L (16.0-40.0) % [place] % (Auto) 8.9 (0.0-15.0) % Eos % (Auto) 1.9 (0.0-7.0) % Baso % (Auto) 0.4 (0.0-1.5) % Neut # (Auto) 5.0 (1.4-5.7) K/uL Lymph # (Auto) 1.1 (0.6-2.4) K/uL [place] # (Auto) 0.6 (0.0-0.8) K/uL Eos # (Auto) 0.1 (0.0-0.7) K/uL Baso # (Auto) 0.0 (0.0-0.1) K/uL Nucleated RBC % 0.0 /100WBC Nucleated RBCs # 0 K/uL Sodium 131 L 142 (136-145) mmol/L Potassium 3.5 3.6 (3.5-5.1) mmol/L Chloride 98 107 (98-107) mmol/L Carbon Dioxide 26.4 25.7 (21.0-32.0) mmol/L BUN 8 6 L (7.0-18.0) mg/dL Creatinine 0.9 1.0 (0.6-1.0) mg/dL Est Cr Clr Drug Dosing 73.12 65.81 mL/min Estimated GFR (MDRD) > 60.0 59.7 ml/min Glucose 109 H 91 (74-106) mg/dL Calcium 7.3 L 7.7 L (8.5-10.1) mg/dL Phosphorus 1.7 L (2.6-4.7) mg/dL Magnesium 1.8 (1.8-2.4) mg/dL Med Orders - Current: Current Medications Diphenhydramine HCl (Diphenhydramine 50 Mg/Ml Sdv) 50 mg IVPUSH Q6H PRN PRN Reason: Itching Enoxaparin Sodium (Enoxaparin 40 Mg/0.4 Ml Syringe) 40 mg SUBCUT Q24H [facility] [place] Last Admin: 11/12/20 10:58 Dose: 40 mg Documented by: Hydromorphone HCl (Hydromorphone 2 Mg/Ml Syringe) 0.5 mg IVPUSH Q1H PRN PRN Reason: Pain (severe 7-10) Last Admin: 11/10/20 19:31 Dose: 0.5 mg Documented by: Piperacillin Sod/Tazobactam (Sod 3.375 gm/ Sodium Chloride) 100 mls @ 200 mls/hr IV Q6H [facility] [place] Last Admin: 11/13/20 02:21 Dose: 200 mls/hr Documented by: Acetaminophen 1,000 mg/ Premix 100 mls @ 400 mls/hr IV Q6H [facility] [place] Stop: 11/13/20 14:21 Last Admin: 11/13/20 01:55 Dose: 400 mls/hr Documented by: Ketorolac Tromethamine (Ketorolac 30 Mg/Ml Sdv) 30 mg IVPUSH Q6H [facility] [place] Stop: 11/16/20 08:03 Last Admin: 11/13/20 01:47 Dose: 30 mg Documented by: Metoclopramide HCl (Metoclopramide 10 Mg/2 Ml Sdv) 10 mg IVPUSH Q6H [facility] [place] Last Admin: 11/13/20 06:26 Dose: 10 mg Documented by: Multivitamins/Minerals/Vitamin C (Multivitamin Tab) 1 tab PO BEDTIME [facility] [place] Last Admin: 11/12/20 21:12 Dose: 1 tab Documented by: Ondansetron HCl (Ondansetron 4 Mg/2 Ml Sdv) 4 mg IVPUSH Q6H PRN PRN Reason: Nausea/Vomiting Last Admin: 11/12/20 14:53 Dose: 4 mg Documented by: Polyethylene Glycol (Polyethylene Glycol 3350 Powder 17 Gm Packet) 17 gm PO DAILY [facility] [place] Last Admin: 11/12/20 10:58 Dose: 17 gm Documented by: Scopolamine (Scopolamine 1.5 Mg Transdermal Patch) 1.5 mg TRDERM Q72H PRN PRN Reason: Nausea Last Admin: 11/12/20 03:07 Dose: 1.5 mg Documented by: Sodium Chloride (Sodium Chloride 0.9% 10 Ml Syringe) 10 ml FLUSH ASDIRECTED PRN PRN Reason: Keep Vein Open Last Admin: 11/10/20 06:40 Dose: 10 ml Documented by: Sodium Chloride (Sodium Chloride 0.9% 2.5 Ml Syringe) 2.5 ml FLUSH ASDIRECTED PRN PRN Reason: Keep Vein Open Last Admin: 11/10/20 06:40 Dose: 2.5 ml Documented by: Sodium Chloride (Sodium Chloride 0.9% 10 Ml Syringe) 10 ml FLUSH ASDIRECTED PRN PRN Reason: Keep Vein Open Sodium Chloride (Sodium Chloride 0.9% 2.5 Ml Syringe) 2.5 ml FLUSH ASDIRECTED PRN PRN Reason: Keep Vein Open Sodium Chloride (Sodium Chloride 0.9% 10 Ml Sdv) 10 ml IV ASDIRECTED PRN PRN Reason: IV Use Sodium Phosphate (Phosphorus #1 250 Mg Tab) 250 mg PO QID [facility] [place] Last Admin: 11/13/20 06:26 Dose: 250 mg Documented by: Discontinued Medications Hydrocodone Bitart/Acetaminophen (Acetaminophen/Hydrocodone 325-5 Mg Tab) 2 tab PO Q4H PRN PRN Reason: Pain Last Admin: 11/12/20 03:06 Dose: 2 tab Documented by: Bupivacaine HCl (Bupivacaine 0.5% 30 Ml Sdv) Confirm Administered Dose 30 ml .ROUTE .STK-MED ONE Stop: 11/10/20 10:35 Dexamethasone (Dexamethasone 4 Mg/Ml 5 Ml Mdv) Confirm Administered Dose 20 mg .ROUTE .STK-MED ONE Stop: 11/10/20 10:34 Fentanyl (Fentanyl 250 Mcg/5 Ml Sdv) Confirm Administered Dose 250 mcg .ROUTE .STK-MED ONE Stop: 11/10/20 10:34 Fentanyl (Fentanyl 100 Mcg/2 Ml Sdv) Confirm Administered Dose 100 mcg .ROUTE .STK-MED ONE Stop: 11/10/20 12:04 Furosemide (Furosemide 20 Mg/2 Ml Vial) 10 mg IVPUSH NOW ONE Stop: 11/12/20 08:01 Last Admin: 11/12/20 08:16 Dose: 10 mg Documented by: Hydromorphone HCl (Hydromorphone 2 Mg/Ml Syringe) 0.5 mg IVPUSH ONETIME ONE Stop: 11/10/20 08:18 Last Admin: 11/10/20 08:30 Dose: 0.5 mg Documented by: Lactated Ringer's (Ringers, Lactated) 1,000 mls @ 125 mls/hr IV ASDIRECTED [facility] [place] Last Admin: 11/11/20 05:59 Dose: 125 mls/hr Documented by: Piperacillin Sod/Tazobactam (Sod 3.375 gm/ Sodium Chloride) 50 mls @ 100 mls/hr IV ONETIME ONE Stop: 11/10/20 08:42 Last Admin: 11/10/20 08:30 Dose: 100 mls/hr Documented by: Acetaminophen 1,000 mg/ Premix 100 mls @ 400 mls/hr IV ONETIME PRN PRN Reason: Pain Last Admin: 11/10/20 12:43 Dose: 400 mls/hr Documented by: Acetaminophen 1,000 mg/ Premix 100 mls @ 400 mls/hr IV Q6H PRN PRN Reason: Pain Last Admin: 11/12/20 08:24 Dose: 400 mls/hr Documented by: Iopamidol (Iopamidol 755 Mg/Ml 500 Ml Multipack Bottle) 100 ml IVPUSH ONETIME STA Stop: 11/10/20 07:02 Last Admin: 11/10/20 07:24 Dose: 100 ml Documented by: Ketorolac Tromethamine (Ketorolac 30 Mg/Ml Sdv) Confirm Administered Dose 30 mg .ROUTE .STK-MED ONE Stop: 11/10/20 10:45 Ketorolac Tromethamine (Ketorolac 30 Mg/Ml Sdv) 30 mg IVPUSH Q6H PRN PRN Reason: Pain (moderate 4-6) Stop: 11/11/20 06:46 Last Admin: 11/10/20 18:43 Dose: 30 mg Documented by: Lidocaine HCl (Lidocaine 1% 5 Ml Sdv) Confirm Administered Dose 5 ml .ROUTE .STK-MED ONE Stop: 11/10/20 10:34 Midazolam HCl (Midazolam 1 Mg/Ml 2 Ml Sdv) Confirm Administered Dose 2 mg .ROUTE .STK-MED ONE Stop: 11/10/20 10:34 Morphine Sulfate (Morphine 4 Mg/Ml Syringe) 4 mg IVPUSH ONETIME ONE Stop: 11/10/20 06:34 Last Admin: 11/10/20 06:41 Dose: 4 mg Documented by: Octyl Cyanoacrylate (Octyl 2-Cyanoacrylate 1 Tube) Confirm Administered Dose 1 applic .ROUTE .STK-MED ONE Stop: 11/10/20 10:36 Ondansetron HCl (Ondansetron 4 Mg/2 Ml Sdv) 4 mg IVPUSH ONETIME ONE Stop: 11/10/20 06:34 Last Admin: 11/10/20 06:41 Dose: 4 mg Documented by: Ondansetron HCl (Ondansetron 4 Mg/2 Ml Sdv) 4 mg IVPUSH ONETIME ONE Stop: 11/10/20 08:21 Last Admin: 11/10/20 08:29 Dose: 4 mg Documented by: Ondansetron HCl (Ondansetron 4 Mg/2 Ml Sdv) Confirm Administered Dose 4 mg .ROUTE .STK-MED ONE Stop: 11/10/20 08:22 Last Admin: 11/10/20 08:30 Dose: Not Given Documented by: Ondansetron HCl (Ondansetron 4 Mg/2 Ml Sdv) Confirm Administered Dose 4 mg .ROUTE .STK-MED ONE Stop: 11/10/20 10:34 Ondansetron HCl (Ondansetron 4 Mg/2 Ml Sdv) 4 mg IVPUSH Q4H PRN PRN Reason: Nausea Oxycodone/Acetaminophen (Acetaminophen/Oxycodone 325-5 Mg Tab) 2 tab PO Q4H PRN PRN Reason: Pain (severe 7-10) Last Admin: 11/11/20 03:59 Dose: 2 tab Documented by: Potassium Chloride (Potassium Chloride 20 Meq Tab.Er) 40 meq PO ONETIME ONE Stop: 11/12/20 09:01 Last Admin: 11/12/20 10:58 Dose: 40 meq Documented by: Propofol (Propofol 200 Mg/20 Ml Sdv) Confirm Administered Dose 200 mg .ROUTE .STK-MED ONE Stop: 11/10/20 10:34 Rocuronium Souris (Rocuronium Souris 50 Mg/5 Ml Syringe) Confirm Administered Dose 50 mg .ROUTE .STK-MED ONE Stop: 11/10/20 10:34 Sugammadex Sodium (Sugammadex Sodium 200 Mg/2 Ml Vial) Confirm Administered Dose 200 mg .ROUTE .STK-MED ONE Stop: 11/10/20 10:44 - Exam General: Reports: Alert, Oriented, Cooperative Lungs: Reports: Normal Respiratory Effort Cardiovascular: Reports: Regular Rate GI/Abdominal Exam: Soft, Non-Tender, No Distention, No Mass Back Exam: Reports: Normal Inspection Extremities: Normal Inspection Skin: Reports: Warm, Dry, Intact Wound/Incisions: Reports: Healing Well Neurological: Reports: No New Focal Deficit
[2020-11-13] MEDS: Polyethylene Glycol 3350 Powder 17 GM Packet PO SCH (08:15)
[2020-11-13] MEDS: Enoxaparin 40 MG/0.4 ML Syringe SUBCUT SCH (09:00)
== END 2020-11-13 10:10 | disposition home or self-care (01) ==
LOC: MW.ED 05:54 → MW.MS 10:23 → INTOOBSV 10:23
PROVIDERS: ADMIT Surgery; ATTEND Surgery
DX: K35.32 Acute appendicitis with perforation, localized peritonitis, and gangrene, without abscess (principal); E87.1 Hypo-osmolality and hyponatremia; E87.6 Hypokalemia; E03.9 Hypothyroidism, unspecified; Z79.899 Other long term (current) drug therapy; Z79.890 Hormone replacement therapy; Z88.2 Allergy status to sulfonamides; Z01.812 Encounter for preprocedural laboratory examination; Z20.822 Contact with and (suspected) exposure to COVID-19
CPT/HCPCS: 36415; 44970; 74177; 80048; 80053; 81001; 81025; 83735; 84100; 85025; 87635; 88304; 96365; 96375; 96376; 99285; A9270; J0131; J1100; J1170; J1650; J1885; J1940; J2250; J2270; J2405; J2543; J2704; J2765; J3010; J3490; J7120; Q9967; 00840; 96367; 96372; G0378; U0002

== ENCOUNTER 2022-09-18 14:20 | Emergency (ER) | payer BC ==
[2022-09-18] MEDS ORDERED: Diphtheria,Pertussis(Acell),Tetanus Vaccine 0.5 ML Syringe IM ONE (15:43)
[2022-09-18] MEDS ORDERED: Octyl 2-Cyanoacrylate 1 g/1 mL 1 APPLIC PEN TOP STA (17:02)
[2022-09-18] MEDS ORDERED: Bacitracin Oint 1 GM U/D Packet TOP STA (17:23)
== END 2022-09-18 17:41 | disposition home or self-care (01) ==
LOC: MW.ED 14:20
DX: S01.01XA Laceration without foreign body of scalp, initial encounter (principal); S01.81XA Laceration without foreign body of other part of head, initial encounter; E03.9 Hypothyroidism, unspecified; Z88.2 Allergy status to sulfonamides; Z79.899 Other long term (current) drug therapy; Z23 Encounter for immunization; W20.8XXA Other cause of strike by thrown, projected or falling object, initial encounter
CPT/HCPCS: 12001; 12011; 90471; 90715; 99282; A9270; 99283